=== PATIENT | female | born 1955 | race Caucasian/White ===

== ENCOUNTER 2019-06-30 08:46 | Outpatient (CLI) | payer MEDICARE, SELFPAY ==
--- NOTE | ~2019-06-30 | DEXA_ITS ---
Bone Density Report Name: Rebecca Ann Age: 64 Sex: Female Ethnicity: White Date of : 1955 Indication: postmenopausal; height loss; Referring Provider: Deepthi Betancourt Study: Bone densitometry was performed. Exam Date: June 30, 2019 Accession number: [id number] Bone Density: Region BMD T-score Z-score Classification AP Spine (L1-L4) 0.743 -2.8 -1.0 Osteoporosis Femoral Neck (Left) 0.588 -2.4 -0.8 Osteopenia Total Hip (Left) 0.746 -1.6 -0.4 Osteopenia Total Hip Bilateral Avg 0.706 -2.0 -0.7 Osteopenia Femoral Neck (Right) 0.595 -2.3 -0.8 Osteopenia Total Hip (Right) 0.665 -2.3 -1.0 Osteopenia World Health Organization criteria for BMD impression classify patients as: Normal (T-score at or above -1.0), Osteopenia (T-score between -1.0 and -2.5), or Osteoporosis (T-score at or below -2.5). 10-year Fracture Risk: FRAX not reported because: Some T-score for Spine Total or Hip Total or Femoral Neck at or below -2.5 Clinical Information Provided by Patient: Has used the following medications: Vitamin D Patient maximum height was 64 Menopause Age: 53 No regular weight bearing exercise Onset of menses at age 16 Number of children 0 Impression: The patient has osteoporosis, based on the Total Spine T-score. Discussion: INCREASED RISK OF FRACTURE. BONE DENSITY IS UNDESIRABLY LOW AT ONE OR MORE SKELETAL SITES, CONSISTENT WITH POSTMENOPAUSAL OSTEOPOROSIS. This patient's lowest T-score meets the World Health Organization's (WHO) criteria for osteoporosis at one or more sites (T-score -2.5 or below). In untreated patients, the risk of osteoporotic fracture increases approximately two-fold for each 1.0 SD decrease in T-score. Low bone density is not the only risk factor for fracture; also consider factors such as patient's age, frailty or poor health, risk of falling, risk of injury, previous osteoporotic fracture, family history of osteoporosis, cigarette smoking, low body weight, etc. Not everyone with low bone mineral density has osteoporosis; osteomalacia and other metabolic bone disorders should also be considered. Patients who have osteoporosis should be evaluated for specific diseases and conditions (secondary causes) that may cause or contribute to bone loss. The [place] Association [employer] Endocrinologists (AACE) and National Osteoporosis Foundation (NOF) recommend pharmacologic intervention for all postmenopausal women whose T-score is in this range. The patient should follow a healthful lifestyle (good nutrition with adequate calcium and vitamin D, and appropriate weight-bearing exercise). Follow-Up: Consider a repeat BMD and Vertebral Fracture Assessment (VFA) exam in 2 years or sooner if medically necessary, to reassess this patient's status. Reported by: JANELLE on 06/30/2019 9:25:00 AM.
--- NOTE | ~2019-06-30 | MM_ITS ---
EXAMINATION: MM screening layne BI w ruth HISTORY: Screening mammogram TECHNIQUE: Craniocaudal and mediolateral oblique 3-D tomosynthesis images were obtained and synthetic 2-D images were generated. CAD analysis was submitted and interpreted. COMPARISON: No prior mammogram is available for comparison at this institution. BREAST PARENCHYMAL COMPOSITION: The breasts are heterogeneously dense, which may obscure small masses . FINDINGS: There is no evidence of suspicious mass, calcification, or architectural distortion to sugg est malignancy in either breast. There has been no suspicious interval change. IMPRESSION: 1. No mammographic evidence of malignancy. 2. Recommend routine screening mammography in one year. BI-RADS Category 1: Negative Reviewed, dictated and finalized at location A. LUTION REP
== END 2019-06-30 08:47 | disposition home or self-care (01) ==
PROVIDERS: PCP Family Medicine; Visit Provider Family Medicine
DX: Z12.31 Encounter for screening mammogram for malignant neoplasm of breast (principal); Z78.0 Asymptomatic menopausal state; M81.0 Age-related osteoporosis without current pathological fracture; M85.852 Other specified disorders of bone density and structure, left thigh; M85.851 Other specified disorders of bone density and structure, right thigh
CPT/HCPCS: 77063; 77067; 77080

== ENCOUNTER 2019-11-19 07:22 | Outpatient (CLI) | payer MEDICARE, SELFPAY ==
--- NOTE | 2019-11-19 07:46 | ECHO_ITS ---
Patient Info Name: Rebecca Ann Age: 64 years : 1955 Gender: Female Ht: 63 in Wt: 170 lbs BSA: 1.88 m2 HR: 76 bpm BP: 138 / 81 mmHg Heart Rhythm: Sinus Rhythm Exam Date: 11/19/2019 8:04 AM Exam Location: [facility] Patient Status: Outpatient Admit Date: 11/19/2019 Staff Ordering Physician: Reina Gallegos NP Family Day Carer: Mayra Antony RDCS Attending Provider: Reina Gallegos NP Referring Physician: Rosy ELLSWORTH; Exam Type: CA echo doppler color flow Study Info Indications - SOFT TISSUE DISORDERS - HYPERTENSION Complete two-dimensional, color flow and Doppler transthoracic echocardiogram is performed. Summary 1. Left ventricular chamber dimension is mildly enlarged. 2. Left ventricular systolic function is normal, estimated at 65-70%. 3. There is mildly increased left ventricular wall thickness. 4. The left ventricular diastolic function is grade I diastolic dysfunction. 5. Left atrial chamber dimension is moderately enlarged. 6. There is mild aortic valve regurgitation. 7. There is mild aortic valve sclerosis. 8. There is mild mitral valve regurgitation. 9. There is mild to moderate tricuspid valve regurgitation. 10. Mild pulmonary hypertension, estimated pulmonary arterial systolic pressure is 40 mmHg. 11. There is mild pulmonic regurgitation. Left Ventricle Left ventricular chamber dimension is mildly enlarged. Left ventricular systolic function is normal, estimated at 65-70%. There is mildly increased left ventricular wall thickness. The left ventricular diastolic function is grade I diastolic dysfunction. Right Ventricle Right ventricular chamber dimension is normal. Right ventricular systolic function is normal. Left Atria Left atrial chamber dimension is moderately enlarged. Right Atria Right atrial chamber dimension is normal. Atrial Septum Intact interatrial septum visualized by color flow imaging. Aortic Valve The aortic valve is trileaflet. There is mild aortic valve sclerosis. There is no aortic valve stenosis. There is mild aortic valve regurgitation. Pulmonic Valve The pulmonic valve is normal. There is no pulmonic valve stenosis. There is mild pulmonic regurgitation. Mitral Valve The mitral valve has thickened leaflets. There is no mitral valve stenosis. There is mild mitral valve regurgitation. Tricuspid Valve The tricuspid valve leaflets are normal. There is no significant tricuspid valve stenosis. There is mild to moderate tricuspid valve regurgitation. Mild pulmonary hypertension, estimated pulmonary arterial systolic pressure is 40 mmHg. Pericardium/Pleural The pericardium appears normal. There is no pericardial effusion. Inferior Vena Cava Dilated inferior vena cava with >50% collapse upon inspiration consistent with elevated right atrial pressure, 10 mmHg. Aorta The aortic root size at the sinus of Valsalva is normal. Left Ventricular Outflow Tract Name Value Normal LVOT 2D LVOT Diameter 2.2 cm LVOT Doppler LVOT Peak Gradient 6 mmHg LVOT Mean Gradient 3 m
[2019-11-19 07:54] LABS: Hematocrit 37.1 % (37.0-47.0); Hemoglobin 12.5 g/dL (12.0-15.0); Mean Corpuscular HGB Conc 33.7 g/dl (32-36); Mean Corpuscular Hemoglobin 31.8 pg (26-34); Mean Corpuscular Volume 94.4 fl (80-100); Platelet Count Result 407 k/mm3 (150-375); Red Blood Count 3.93 M/mm3 (4.2-5.4); Red Cell Distribution Width 15.4 % (11.5-14.5); White Blood Count 11.7 K/mm3 (4.5-10.0)
[2019-11-19 07:58] LABS: Alanine Aminotransferase 20 U/L (4-35); Albumin Level 4.5 g/dL (3.5-5.1); Alkaline Phosphatase 70 U/L (38-126); Anion Gap 12.1 mmol/L (7-16); Aspartate Amino Transferase 36 U/L (14-36); Bilirubin,Total 0.6 mg/dL (0.2-1.3); Blood Urea Nitrogen 20 mg/dL (7-17); Calcium 9.3 mg/dL (8.4-10.2); Carbon Dioxide 32 mmol/L (22-30); Chloride 95 mmol/L (98-107); Cholesterol 230 mg/dL (0-200); Estimated Glomerular Filt Rate > 60; Glucose 94 mg/dL (65-105); Potassium 4.1 mmol/L (3.4-5.0); Sodium 135 mmol/L (137-145); Triglycerides 64 mg/dL (<150)
[2019-11-19 08:03] LABS: NT Pro B Type Natriuretic Pept 210 PG/ML (5-100)
[2019-11-19 08:05] LABS: LDL Cholesterol Direct 87 mg/dL
[2019-11-19 08:31] LABS: HDL Direct 123 mg/dL
== END 2019-11-19 07:23 | disposition home or self-care (01) ==
PROVIDERS: PCP Family Medicine; Visit Provider Nurse Practitioner Family
DX: M79.89 Other specified soft tissue disorders (principal); R06.01 Orthopnea; E78.5 Hyperlipidemia, unspecified; I10 Essential (primary) hypertension; I08.3 Combined rheumatic disorders of mitral, aortic and tricuspid valves
CPT/HCPCS: 36415; 80053; 80061; 83880; 85027; 93306

== ENCOUNTER 2020-02-01 08:42 | Outpatient (CLI) | payer MEDICARE, SELFPAY ==
--- NOTE | ~2020-02-01 | NM_ITS ---
EXAMINATION: NM sugey stress w perfusion EXAM DATE: 02/01/2020 12:13 INDICATION: Shortness of breath. TECHNIQUE: Rest images were obtained following intravenous administration of 10.3 mCi Tc99m tetrofosm in (Myoview). The patient was infused intravenously with Lexiscan (regadenoson). Then, 31.5 mCi Tc99m tetrofosmin (Myoview) was administered intravenously, and stress images were obtained. Data was cherelle nstructed into short axis and horizontal and vertical long axis SPECT images. Gated SPECT images were also obtained. There is no prior study for comparison. FINDINGS: There is no reversible or fixed perfusion abnormality to suggest ischemia or infarction. Th ere is normal left ventricular wall motion. End diastolic volume: 62 mL. End-systolic volume: 7 mL. Left ventricular ejection fraction: 89%. IMPRESSION: 1. Normal myocardial perfusion at rest and during stress. 2. Left ventricular ejection fraction measuring 89%. Reviewed, dictated and finalized at location B.
--- NOTE | 2020-02-01 09:22 | EST_ITS ---
Patient Info Name: Rebecca Ann Age: 64 years : 1955 Gender: Female Ht: 63 in Wt: 165 lbs BSA: 1.85 m2 Exam Date: 02/01/2020 10:16 AM Exam Location: [facility] Stress Patient Status: Outpatient Admit Date: 02/01/2020 Staff Ordering Physician: Paige Muñoz NP Attending Provider: Paige Muñoz NP Referring Physician: Jana Castellon MD; Exercise Technologist: Radha Castro RDCS Exam Type: CA stress sugey w NM Study Info Indications R06.02 - Shortness of breath A regadenoson stress test was performed. Summary 1. Normal sinus rhythm. 2. Leftward axis,. 3. No ST segment abnormalities noted following the injection of Lexiscan. 4. Clinically and electrocardiographically negative Lexiscan stress test. 5. Myocardial perfusion imaging study to be dictated by the Radiology Department. Protocol: Lexiscan Stress ECG Details Stage: REST Duration (min): 2 min : 53 sec HR (bpm): 71 SBP (mmHg): 135 DBP (mmHg): 64 Stage: REST Duration (min): 14 min : 48 sec HR (bpm): 70 SBP (mmHg): 135 DBP (mmHg): 64 Stage: STAGE 1 Duration (min): 0 min : 59 sec HR (bpm): 84 SBP (mmHg): 136 DBP (mmHg): 81 Stage: RECOVERY Duration (min): 1 min : 0 sec HR (bpm): 87 SBP (mmHg): 119 DBP (mmHg): 81 Stage: RECOVERY Duration (min): 2 min : 0 sec HR (bpm): 84 SBP (mmHg): 119 DBP (mmHg): 81 Stage: RECOVERY Duration (min): 3 min : 0 sec HR (bpm): 82 SBP (mmHg): 121 DBP (mmHg): 85 Stage: RECOVERY Duration (min): 4 min : 0 sec HR (bpm): 84 SBP (mmHg): 142 DBP (mmHg): 98 Stage: RECOVERY Duration (min): 4 min : 7 sec HR (bpm): 82 SBP (mmHg): 142 DBP (mmHg): 98 Rest HR: 70 bpm Peak HR: 89 bpm Rest Sys BP: 135 mmHg Peak Sys BP: 142 mmHg Max Pred HR: 155 bpm % Max Pred HR: 57 % Target HR: 132 bpm Max RPP: 12,638 bpm*mmHg BP Response: Normal blood pressure response Termination Reason: Completed protocol Cardiac Symptoms: None Total Time: 1 min : 0 sec Rest Nicolas BP: 64 mmHg Peak Nicolas BP: 98 mmHg Total Dose: 0.4 mg Resting ECG Normal sinus rhythm. Leftward axis,. Stress ECG No ST segment abnormalities noted following the injection of Lexiscan. Report Signatures
== END 2020-02-01 08:43 | disposition home or self-care (01) ==
PROVIDERS: PCP Nurse Practitioner; Referring Provider Internal Medicine Cardiovascular Disease; Visit Provider Nurse Practitioner
DX: R06.02 Shortness of breath (principal)
CPT/HCPCS: 78452; 93017; A9502; J2785

== ENCOUNTER 2020-02-08 11:51 | Outpatient (CLI) | payer MEDICARE, SELFPAY ==
--- NOTE | ~2020-02-08 | XR_ITS ---
EXAMINATION: XR chest 2V DATE: 02/08/2020 12:32 INDICATION: Shortness of breath. TECHNIQUE: Frontal and lateral views of the chest were obtained. COMPARISON: None. FINDINGS: There is eventration of anterior right hemidiaphragm. No pleural effusion or pneumothorax. The heart size is normal. There are surgical clips in the abdomen. IMPRESSION: 1. No acute cardiopulmonary disease. Reviewed, dictated and finalized at location A.
[2020-02-08 13:32] LABS: Anion Gap 7 mmol/L (8-16); Blood Urea Nitrogen 38 mg/dL (7-17); Calcium 9.3 mg/dL (8.4-10.2); Carbon Dioxide 36 mmol/L (22-30); Chloride 93 mmol/L (98-107); Estimated Glomerular Filt Rate 41; Glucose 99 mg/dL (65-105); Potassium 4.3 mmol/L (3.4-5.0); Sodium 136 mmol/L (137-145)
== END 2020-02-08 11:52 | disposition home or self-care (01) ==
PROVIDERS: PCP Nurse Practitioner; Visit Provider Internal Medicine Cardiovascular Disease
DX: R09.02 Hypoxemia (principal)
CPT/HCPCS: 36415; 71046; 80048

== ENCOUNTER 2020-03-17 18:49 | Observation (INO) | payer MEDICARE, SELFPAY ==
[2020-03-17] VITALS (13 sets, daily range): BP systolic 110–128; BP diastolic 73–77; PULSE 78–95; RESP 16–26; TEMP 36.6; O2SAT 92–100
--- NOTE | ~2020-03-17 | US_ITS ---
EXAMINATION: US renal BI DATE: 03/18/2020 14:53 INDICATION: Left kidney mass. TECHNIQUE: Multiple ultrasound grayscale images of the kidneys were obtained. COMPARISON: Chest CT 03/17/2020 FINDINGS: The right kidney measures 11.9 x 5.2 x 5.1 cm. The left kidney measures 10.3 x 5.6 x 6.9 cm. The kidn eys demonstrate normal parenchymal echogenicity. There is a 1.7 cm cyst of left kidney. There is no h ydronephrosis. The bladder is normal. IMPRESSION: 1. Benign cyst of left kidney. Reviewed, dictated and finalized at location A. PMENT INSTALLATION PROFESSIONAL
--- NOTE | ~2020-03-17 | XR_ITS ---
EXAMINATION: XR chest 1V portable DATE: 03/17/2020 19:33 INDICATION: Dyspnea TECHNIQUE: frontal view of the chest was obtained. COMPARISON: Chest radiograph dated 02/08/2020 FINDINGS: Eventration along the anterior right hemidiaphragm. Minimal linear atelectasis at the bilateral lung bases. No pulmonary edema, pleural effusion or pneumothorax. The cardiomediastinal silhouette is with in normal limits for AP technique. . Surgical clips in the epigastric region of the left upper quadra nt. Mild lumbar levoscoliosis with mild spondylosis. IMPRESSION: 1. Mild bibasilar atelectasis. Reviewed, dictated and finalized at location H. CE PILOT
--- NOTE | ~2020-03-17 | CT_ITS ---
EXAMINATION: CTA chest PE protocol DATE: 03/17/2020 23:37 INDICATION: Chest pain TECHNIQUE: Computed tomography (CT) pulmonary angiogram of the chest was performed with 100 mL Omnipa que-350 intravenous contrast. Additional 3D reconstructions utilizing coronal maximum intensity proje ction (MIP) were performed. Automated exposure control and iterative reconstruction technique were em ployed. The dose-length product was 334.29 mGy-cm. COMPARISON: None the orbits and FINDINGS: Excellent contrast opacification of the pulmonary arteries. There is mild streak artifact from dense contrast in the superior vena cava and right atrium. Moderate respiratory motion artifact throughout the lungs which does not significantly limit evaluation in the larger pulmonary arteries which demons trate multiple pulmonary emboli. This includes pulmonary emboli extending between the right upper and right lower lobar pulmonary arteries and into several segmental and subsegmental pulmonary arteries in both lobes. There are also pulmonary emboli in several segmental and subsegmental pulmonary arteri es in the left upper and lower lobes as well as in both the superior and inferior segmental pulmonary arteries of the lingula. There are small peripheral opacities at the lingula consistent with pulmona ry infarcts. No pulmonary edema or pleural effusion. Cardiomegaly with right heart predominance and e nlargement. There is enlargement of the central pulmonary arteries consistent with pulmonary arterial hypertension likely secondary to the large pulmonary arterial clot burden. There is however no leftw chad bowing of the ventricular septum to suggest right heart strain. No pericardial effusion. Thoracic aorta is normal in caliber with no dissection. No pathologically enlarged thoracic lymphadenopathy. Indeterminate 1.8 cm exophytic left renal lesion with relatively low but slightly greater than fluid attenuation which may be related to the presence of intravenous contrast and streak artifact from car diac monitoring leads which is statistically most likely to represent a renal cyst. Status post splen ectomy with surgical clips in the left upper quadrant. Mild thoracic spondylosis. IMPRESSION: 1. Extensive bilateral pulmonary emboli with small peripheral infarcts at the lingula. 2. Enlargement of the central pulmonary arteries likely secondary pulmonary arterial hypertension. 3. Cardiomegaly with right side predominant enlargement which may also be secondary to the pulmonary emboli although there is no leftward bowing of the ventricular septum to more specifically suggest ri ght heart strain. 4. Indeterminate 1.8 cm left renal lesion statistically most likely to represent a renal cyst. Could consider follow-up renal ultrasound for further evaluation. Reviewed, dictated and finalized at location H. E TURNER AND FORMER IMPRESSION: 1. Extensive bilateral pulmonary emboli with small peripheral infarcts at the l ingula. 2. Enlargement of the central pulmonary arteries likely secondary pulmonary art erial hypertension. 3. Cardiomegaly with right side predominant enlargement which may also be secon amanda to the pulmonary emboli although there is no leftward bowing of the ventri cular septum to more specifically suggest right heart strain. 4. Indeterminate 1.8 cm left renal lesion statistically most likely to represen t a renal cyst. Could consider follow-up renal ultrasound for further evaluatio n.
--- NOTE | ~2020-03-17 | US_ITS ---
EXAMINATION: US venous doppler LE EXAM DATE: 03/18/2020 14:52 INDICATION: Rule out DVT. bilat pulmonary emboli. TECHNIQUE: Multiple grayscale, color flow and Doppler images of the lower extremity deep venous syste ms bilaterally were obtained and reviewed. There is no prior study for comparison. FINDINGS: RIGHT SIDE Common femoral: -------- Normal. Profunda femoral: -------Thrombosed. Femoral: Thrombosed. Popliteal: Thrombosed. Posterior tibial: ---------Thrombosed. Peroneal: Normal. Gastrocnemius: Thrombosed. Soleus: Thrombosed. Greater saphenous: ----- Normal. Lesser saphenous: ------ Not visualized. LEFT SIDE Common femoral: -------- Normal. Profunda femoral: ------- Normal. Femoral: Normal. Popliteal: Thrombosed distally. Posterior tibial: ---------Thrombosed. Peroneal: Normal. Gastrocnemius: Not visualized. Soleus: Not visualized. Greater saphenous: ----- Normal. Lesser saphenous: ------ Not visualized. IMPRESSION: 1. Extensive right lower extremity DVT. 2. Smaller left popliteal, posterior tibial DVT. Reviewed, dictated and finalized at location A. CULTURAL APPRAISER
--- NOTE | 2020-03-17 19:20 | PC.NURSE ---
patient resting on stretcher. patient unclear on her symptoms that lead to calling EMS. states her family member told her that she had Covid based on her symptoms and to call EMS. alert. oriented. no distress. on cardiac rn. SL inserted by EMS. updated on treatment plan at this time. call light in reach. blanket given. patient already asking for dinner tray.
--- NOTE | 2020-03-17 19:43 | PC.NURSE ---
patient's labs rejected. redrawn now by gameroom technician. no change in overall condition. resting on stretcher. CXR done and resulted. call light in reach.
[2020-03-17 19:48] LABS: Basophils Absolute Auto 0.1 K/mm3 (0.0-0.1); Basophils Percent Auto 0.4 % (0.2-1.2); Eosinophils Percent Auto 0.1 % (0-4.4); Hematocrit 38.7 % (37.0-47.0); Hemoglobin 13.1 g/dL (12.0-15.0); Immature Granulocyte Absolute 0.18 K/mm3 (0.00-0.031); Lymphocytes Absolute Auto 2.09 K/mm3 (0.9-3.2); Lymphocytes Percent Auto 11.2 % (18.3-44.2); Mean Corpuscular HGB Conc 33.9 g/dl (32-36); Mean Corpuscular Hemoglobin 32.9 pg (26-34); Mean Corpuscular Volume 97.2 fl (80-100); Mean Platelet Volume 10.7 fl (7.4-10.4); Monocytes Absolute Auto 2.9 K/mm3 (0.1-0.6); Monocytes Percent Auto 15.5 % (2.6-8.5); Neutrophils Absolute Auto 13.4 K/mm3 (1.3-6.7); Neutrophils Percent Auto 71.8 % (45.5-73.1); Platelet Count Result 301 k/mm3 (150-375); Red Blood Count 3.98 M/mm3 (4.2-5.4); Red Cell Distribution Width 13.7 % (11.5-14.5); White Blood Count 18.7 K/mm3 (4.5-10.0)
[2020-03-17 19:59] LABS: Alanine Aminotransferase 10 U/L (4-35); Albumin Level 4.2 g/dL (3.5-5.1); Alkaline Phosphatase 69 U/L (38-126); Anion Gap 11 mmol/L (8-16); Aspartate Amino Transferase 21 U/L (14-36); Bilirubin,Total 0.9 mg/dL (0.2-1.3); Blood Urea Nitrogen 55 mg/dL (7-17); Calcium 9.3 mg/dL (8.4-10.2); Carbon Dioxide 33 mmol/L (22-30); Chloride 92 mmol/L (98-107); Estimated CRCL calculation 25 ml/min; Estimated Glomerular Filt Rate 28; Glucose 130 mg/dL (65-105); Potassium 3.5 mmol/L (3.4-5.0); Sodium 136 mmol/L (137-145)
[2020-03-17 20:04] LABS: Prothrombin Time 13.9 Seconds (11.1-14.7)
[2020-03-17 20:05] LABS: Partial Thromboplastin Time 33.1 SECONDS (22.3-36.8)
[2020-03-17 20:11] LABS: NT Pro B Type Natriuretic Pept 320 PG/ML (5-100); Troponin I 0.015 ng/mL (0.000-0.034)
[2020-03-17 20:32] LABS: D Dimer 3.21 ug/mL (<0.48)
[2020-03-17] MEDS: SODIUM CHLORIDE 0.9% IV 1,000 ML 999 ML IV CONT (21:02)
--- NOTE | 2020-03-17 22:01 | PC.NURSE ---
resting on stretcher. IVF done. repeat BMP being drawn. provider in room. patient updated on current treatment plan. needs CT of chest to r/o PE if labs better. patient verbalizes understanding. denies needs. wants us to call her family member with an update.
[2020-03-17 22:33] LABS: Anion Gap 12 mmol/L (8-16); Blood Urea Nitrogen 51 mg/dL (7-17); Calcium 8.5 mg/dL (8.4-10.2); Carbon Dioxide 26 mmol/L (22-30); Chloride 95 mmol/L (98-107); Estimated CRCL calculation 30 ml/min; Estimated Glomerular Filt Rate 35; Glucose 125 mg/dL (65-105); Potassium 3.2 mmol/L (3.4-5.0); Sodium 133 mmol/L (137-145)
[2020-03-18] VITALS (12 sets, daily range): BP systolic 108–128; BP diastolic 64–73; PULSE 69–95; RESP 16–22; TEMP 36.2–37.1; O2SAT 97–100; BMI 26.6
--- NOTE | 2020-03-18 | ECHO_ITS ---
Patient Info Name: Rebecca Ann Age: 65 years : 1955 Gender: Female Ht: 63 in Wt: 150 lbs BSA: 1.76 m2 HR: 75 bpm BP: 108 / 68 mmHg Heart Rhythm: Sinus Rhythm Technical Quality: Good Exam Date: 03/18/2020 9:20 AM Exam Location: [facility] Card Pulmonary Patient Status: Inpatient Admit Date: 03/18/2020 Staff Ordering Physician: Kenzie eLma PA-C Jigmaker: Henry Mendoza RDCS Attending Provider: Kenzie Lema PA-C Referring Physician: Torey ROCK; Exam Type: CA echo doppler color flow Study Info Indications I26.09 - Other pulmonary embolism with acute cor pulmonale Complete two-dimensional, color flow and Doppler transthoracic echocardiogram is performed. History/Risk Factors Pulmonary embolism; HTN, cardiomegaly, right heart strain on CT. Summary 1. Complete two-dimensional, color flow and Doppler transthoracic echocardiogram is performed. 2. Left ventricular chamber dimension is normal. 3. Left ventricular systolic function is hyperdynamic, estimated at >70%. 4. Right ventricular chamber dimension is mildly enlarged. 5. No significant valvular abnormalities. Left Ventricle Left ventricular chamber dimension is normal. Left ventricular systolic function is hyperdynamic, estimated at >70%. The left ventricular diastolic function is grade I diastolic dysfunction. Right Ventricle Right ventricular chamber dimension is mildly enlarged. Left Atria Left atrial chamber dimension is normal. Right Atria Right atrial chamber dimension is normal. Aortic Valve The aortic valve is trileaflet. There is mild aortic valve sclerosis. Pulmonic Valve The pulmonic valve is not well visualized. Mitral Valve The mitral valve has normal leaflets. Tricuspid Valve The tricuspid valve leaflets are normal. Pericardium/Pleural The pericardium appears normal. Aorta The aortic root size at the sinus of Valsalva is normal. Left Ventricular Outflow Tract Name Value Normal LVOT 2D LVOT Diameter 2.1 cm LVOT Doppler LVOT Peak Gradient 4 mmHg LVOT Mean Gradient 2 mmHg LVOT VTI 15 cm LVOT VTI/AV VTI Ratio 0.7 LVOT Stroke Volume 53 ml LVOT CO 4.0 l/min LVOT CI 2.3 l/min/m2 Mitral Valve Name Value Normal MV Doppler MV Decel [place] 142 cm/s2 MV PHT 94 ms MV Area (PHT) 2.3 cm2 4.0-5.0 MV Diastolic Function MV E Peak Velocity 46 cm/s MV A Peak Velocity 66 cm/s MV E/A
--- NOTE | 2020-03-18 00:22 | ED.WEAKNESS ---
HPI - Weakness General Chief complaint: Weakness Stated complaint: CP,LOSS OF APPETITE Time Seen by Provider: 03/17/20 19:02 History of Present Illness HPI Narrative: Patient is a 65-year-old female who presents the emergency department with chief complaint of generalized malaise. Patient reports also she has had discomfort and describes a sharp uncomfortable feeling in the left side of her chest that hurts whenever she takes a deep breath. The patient states that it is not improved by anything and is worsened whenever she has inspiratory effort. Patient states that she is just felt unwell for the last several days denies fever denies chills denies nausea or vomiting. Patient reports no prior history of clotting disorder Related Data Home Medications Medication Instructions Recorded Confirmed ergocalciferol (vitamin D2) 1,250 1,250 mcg PO WEEKLY 05/07/19 11/26/19 mcg (50,000 unit) capsule aspirin 81 mg tablet,delayed 81 mg PO DAILY 11/26/19 11/26/19 release Allergies Allergy/AdvReac Type Severity Reaction Status Date / Time prochlorperazine Allergy Unknown Verified 03/17/20 19:12 Review of Systems Review of Systems: Narrative: CONSTITUTIONAL: Denies fever, chills, or sweats. EYES: Denies visual changes, redness, or discharge. ENT: Denies rhinorrhea, congestion, sore throat, or otalgia. CARDIOVASCULAR: Denies chest pain, palpitations, or edema. RESPIRATORY: Denies cough or dyspnea. GASTROINTESTINAL: Denies abdominal pain, nausea, vomiting, or diarrhea. GENITOURINARY: Denies dysuria or hematuria. SKIN: Denies rash or itching. MUSCULOSKELETAL: Denies back pain, joint pain, or myalgia. NEUROLOGIC: Denies headache, numbness, or weakness. PSYCHIATRIC: Denies anxiety or depression. All systems reviewed & are unremarkable except as noted in HPI and below PMFSH Past Medical History Medical History (Updated 03/18/20 @ 00:48 by Leland Rao MD) Arthralgia of both hands Benign essential hypertension Counseling regarding advanced care planning and goals of care Encounter for counseling regarding immunization Negative depression screening Family History Family History Mother Acute myocardial infarction, Onset Age: 63 Father Acute myocardial infarction, Onset Age: 65 Other Family history of throat cancer Social History Social History Smoking status: Never smoker Second hand tobacco smoke exposure: Yes Alcohol intake: current Exam Narrative: Exam Narrative: GENERAL: Well-appearing, well-nourished, and in no acute distress. HEAD: Normocephalic, atraumatic. EYES: PERRLA and EOMI. ENT: Nares clear, no rhinorrhea or epistaxis. Mucous membranes moist. NECK: Supple. CHEST: Clear to auscultation. No respiratory distress. HEART: Regular rate and rhythm. No murmur heard. Normal peripheral pulses. ABDOMEN: Soft, nontender, nondistended, normal active bowel sounds. EXTREMITIES: Normal range of motion. No edema. SKIN: Warm, dry, no rash. NEURO: No focal deficits. Alert and oriented x3. PSYCH: Normal mood and affect. Course Course Emergency Course: EKG showed no ST elevation or ST depression. Patient's laboratory studies showed a significantly elevated D-dimer and also she was found to have a creatinine that was 1.8 the patient has showed evidence of a acute kidney injury patient was hydrated with a liter of normal saline and the repeat creatinine was 1.5. CT angiography of the chest was obtained this showed evidence of acute bilateral pulmonary emboli. Vital Signs Vital signs: Vital Signs Temperature 36.6 C 03/17/20 19:07 Temperature 36.6 C 03/17/20 19:07 Pulse Rate 80 03/18/20 00:16 Respiratory Rate 18 03/18/20 00:16 Blood Pressure 112/73 03/18/20 00:16 Pulse Oximetry 97 03/18/20 00:16 MDM - Weakness Lab Data Resul
[2020-03-18] MEDS: HEPARIN SOD/D5W 100 UNITS/ML 25,000 UNITS/250 ML BAG 12.26 UNITS IV CONT (00:47)
[2020-03-18 00:48] LABS: Add Urine Microscopic? YES; Appearance Urine Clear (Clear); Bilirubin Urine Negative (Negative); Blood Urine 1+ (Negative); Color Urine Yellow (Yellow); Glucose Urine UA Negative (Negative); Ketones Urine Trace mg/dL (Negative); Leukocyte Esterase Ur Trace LEU/UL (Negative); Mucus Urine Rare /lpf; Nitrate Urine Negative (Negative); Protein Urine Negative (Negative); Specific Grav Ur 1.051 (1.001-1.035); Squamous Epithelial Cell Urine Few /hpf (Few); Urobilinogen Urine Negative mg/dL (<2.0)
--- NOTE | 2020-03-18 04:36 | PM.IMHP ---
H&P: HPI History of Present Illness Date/Time: 03/18/20 04:36 Chief complaint: Pulmonary Embolism Narrative: This is a pleasant 65-year-old female with known history of hypertension who presented to the [facility] with complaint of left-sided lower chest discomfort which she described as pleuritic in nature. Patient complained that her chest discomfort was present whenever she took a deep breath and felt like she had a hard time taking a deep breath. She denies any fever, chills, cough, palpitations, abdominal pain, dysuria, hematuria, diarrhea, rectal bleeding, lower extremity swelling, or lower extremity pain. Patient denies any previous history of blood clotting and is not known to be on any anticoagulants. She denies any known history of active cancer, has not had any recent surgeries, and denies any long distance recent travel. She also denies any supplemental hormone therapy. CTA chest obtained in the emergency department this evening demonstrated extensive bilateral pulmonary emboli with small peripheral infarcts at the lingula and enlargement of the central pulmonary arteries likely secondary pulmonary arterial hypertension. The patient was anticoagulated in the emergency room with IV heparin and we were asked to admit the patient to the hospital for further care. The patient has not required any supplemental oxygen. Currently she is only complaining of mild left lower abdominal discomfort. No other complaints. Review of Systems Review of Systems: All systems reviewed & are unremarkable except as noted in HPI and below PMFSH Past Medical History Medical History Arthralgia of both hands Benign essential hypertension Counseling regarding advanced care planning and goals of care Encounter for counseling regarding immunization Negative depression screening Family History Family History Mother Acute myocardial infarction, Onset Age: 63 Father Acute myocardial infarction, Onset Age: 65 Other Family history of throat cancer Social History Social History Smoking status: Never smoker Second hand tobacco smoke exposure: Yes Alcohol intake: current Comments past surgical history is reviewed and noncontributory. Meds Home Medications and Allergies Home Medications Medication Instructions Recorded Confirmed Type ergocalciferol (vitamin D2) 1,250 1,250 mcg PO WEEKLY 05/07/19 11/26/19 History mcg (50,000 unit) capsule losartan 50 mg tablet 50 mg PO BID #180 tablet 11/05/19 11/26/19 Rx aspirin 81 mg tablet,delayed 81 mg PO DAILY 11/26/19 11/26/19 History release metoprolol tartrate 25 mg tablet 25 mg PO DAILY #60 tablet 11/26/19 11/26/19 Rx potassium chloride 10 mEq See Rx Instructions .ROUTE 02/24/20 Rx tablet,extended release(part/cryst) .COMPLEX #90 tablet furosemide [Lasix] 40 mg PO QAM 03/18/20 03/18/20 History hydrochlorothiazide 12.5 mg PO DAILY 03/18/20 03/18/20 History Allergies Allergy/AdvReac Type Severity Reaction Status Date / Time prochlorperazine Allergy Unknown Verified 03/17/20 19:12 Vital Signs Vital Signs - 24 hr 03/17/20 19:07 03/17/20 19:11 03/17/20 20:16 Temperature 36.6 C Pulse Rate 78 95 Respiratory Rate 19 Blood Pressure 128/77 Pulse Oximetry 96 03/17/20 20:23 03/17/20 20:38 03/17/20 21:02 Temperature Pulse Rate 95 95 87 Respiratory Rate 22 H 21 H 16 Blood Pressure Pulse Oximetry 94 95 99 03/17/20 21:15 03/17/20 21:16 03/17/20 21:30 Temperature Pulse Rate 84 83 83 Respiratory Rate 18 18 19 Blood Pressure 123/77 Pulse Oximetry 100 99 99 03/17/20 21:31 03/17/20 21:32 03/17/20 22:16 Temperature Pulse Rate 84 81 79 Respiratory Rate 20 20 17 Blood Pressure 110/73 Pulse Oximetry 97 97 92 03/17/20 22:31 03/18/20 00:16 1
--- NOTE | 2020-03-18 04:50 | ADMGEN ---
This patient, Rebecca Ann, was admitted to Medical Room [facility]- at 0255. Patient/family oriented to hospital policies and general routines including ID bracelet, bed and alarms, visiting hours, pain management, procedures, bathroom and other care routines, personal items, smoking policy, room service/diet, and visiting hours. Information on how to activate the Rapid Response Team has been discussed. Patient/Family are encouraged to report perceived risks to care and to ask questions if they do not understand what they are told or what they should do.
[2020-03-18] MEDS: SODIUM CHLORIDE 0.9% IV 1,000 ML 100 ML IV CONT ×2 (05:59→21:44)
[2020-03-18 06:19] LABS: Basophils Percent Auto 0.2 % (0.2-1.2); Eosinophils Percent Auto 0.1 % (0-4.4); Hemoglobin 11.2 g/dL (12.0-15.0); Immature Granulocyte Absolute 0.15 K/mm3 (0.00-0.031); Immature Granulocyte Percent A 0.9 % (0-0.5); Lymphocytes Absolute Auto 2.26 K/mm3 (0.9-3.2); Lymphocytes Percent Auto 13.4 % (18.3-44.2); Mean Corpuscular HGB Conc 33.9 g/dl (32-36); Mean Corpuscular Hemoglobin 32.5 pg (26-34); Mean Corpuscular Volume 95.7 fl (80-100); Mean Platelet Volume 11.9 fl (7.4-10.4); Monocytes Percent Auto 17.5 % (2.6-8.5); Neutrophils Absolute Auto 11.5 K/mm3 (1.3-6.7); Neutrophils Percent Auto 67.9 % (45.5-73.1); Nucleated Red Blood Cells Perc 0.1 % (0.0-0.2); Platelet Count Result 281 k/mm3 (150-375); Red Blood Count 3.45 M/mm3 (4.2-5.4); Red Cell Distribution Width 13.8 % (11.5-14.5); White Blood Count 16.9 K/mm3 (4.5-10.0)
[2020-03-18 06:23] LABS: Anion Gap 13 mmol/L (8-16); Blood Urea Nitrogen 54 mg/dL (7-17); Calcium 8.5 mg/dL (8.4-10.2); Carbon Dioxide 27 mmol/L (22-30); Chloride 95 mmol/L (98-107); Estimated CRCL calculation 33 ml/min; Estimated Glomerular Filt Rate 38; Glucose 129 mg/dL (65-105); Magnesium 2.2 mg/dL (1.6-2.3); Potassium 2.9 mmol/L (3.4-5.0); Sodium 135 mmol/L (137-145)
[2020-03-18 06:28] LABS: Troponin I 0.018 ng/mL (0.000-0.034)
[2020-03-18 07:30] LABS: Partial Thromboplastin Time 64.9 SECONDS (22.3-36.8)
[2020-03-18] MEDS: HEPARIN SODIUM 5,000 UNITS/ML VIAL 2500 UNITS IV PUSH ×2 (07:39→16:18)
[2020-03-18] MEDS: POTASSIUM CHLORIDE 20 MEQ TABLET 40 MEQ PO (08:06)
[2020-03-18] MEDS: HEPARIN SOD/D5W 100 UNITS/ML 25,000 UNITS/250 ML BAG 13 UNITS IV CONT (08:29)
[2020-03-18] MEDS: METOPROLOL TARTRATE 25 MG TABLET PO (09:54)
[2020-03-18] MEDS: ASPIRIN 81 MG ENTERIC TABLET PO (09:54)
--- NOTE | 2020-03-18 10:23 | PM.IMPN ---
Progress Note: A&P Assessment and Plan (1) Pulmonary emboli: Qualifiers: Pulmonary embolism type: multiple subsegmental (without acute cor pulmonale) Qualified Code(s): I26.94 - Multiple subsegmental pulmonary emboli without acute cor pulmonale Code(s): I26.99 - Other pulmonary embolism without acute cor pulmonale Status: Acute Assessment and Plan: Pulmonary emboli are likely subacute given that she already has evidence on her CTA of pulmonary hypertension and right-sided cardiomegaly. She reports shortness of breath for 1 month which worsened in the past 3-4 days. She has no prior hx of VTE. Continue heparin gtt. Echocardiogram and venous doppler US are ordered and pending. She is hemodynamically stable and she is not hypoxic. Care coordination consult has been placed to check cost of DOACs. Continue analgesics as needed. Continue heparin gtt. Monitor H&H closely. (2) Leukocytosis: Qualifiers: Leukocytosis type: unspecified Qualified Code(s): D72.829 - Elevated white blood cell count, unspecified Code(s): D72.829 - Elevated white blood cell count, unspecified Status: Acute Assessment and Plan: Likely reactive secondary to pulmonary embolism. She has no other sx to suggest infection. Continue to monitor. (3) Acute on chronic renal failure: Qualifiers: Acute renal failure type: unspecified Chronic kidney disease stage: stage 3 (moderate) Chronic kidney disease stage 3 subtype: unspecified whether 3a or 3b Qualified Code(s): N17.9 - Acute kidney failure, unspecified; N18.30 - Chronic kidney disease, stage 3 unspecified Code(s): N17.9 - Acute kidney failure, unspecified; N18.9 - Chronic kidney disease, unspecified Status: Acute Assessment and Plan: Cr at admission to the emergency department was 1.8 and BUN 55. I suspect pre-renal etiology as she recently started furosemide 40mg PO QD. She has received gentle IV fluids. Cr has improved to 1.4 and BUN 54. Baseline appears to be 0.6-1.3. Avoid nephrotoxins and renally dose medications. Hold losartan-HCTZ for now. Lasix is also on hold. Continue to monitor closely. (4) Renal mass: Code(s): N28.89 - Other specified disorders of kidney and ureter Status: Acute Assessment and Plan: The patient was incidentally found to have a 1.8 cm left renal mass on chest CTA. Renal US was ordered for further characterization and is pending. (5) Benign essential hypertension: Code(s): I10 - Essential (primary) hypertension Status: Chronic Assessment and Plan: Blood pressures are well-controlled. Continue metoprolol. Losartan-hydrochlorothiazide is held for now given MIRIAM. Continue metoprolol. Continue to monitor. (6) Hypokalemia: Code(s): E87.6 - Hypokalemia Status: Acute Assessment and Plan: Likely secondary to diuretic use. She does take potassium supplement daily. Will supplement and monitor closely. Subjective Date/time seen: 03/18/20 10:23 Mrs. Ann is a 65 y.o. female with PMH significant for hypertension who is seen in follow-up for pulmonary embolism. She is feeling better today. She denies dyspnea. She did have left-sided pleuritic pain which prompted her to proceed to the ED which is much better today. She denies cough. She is not having any nausea, vomiting, or abdominal pain. She reports swelling in the feet intermittently for several months but denies significant calf pain or leg swelling today. She is not dizzy or lightheaded. She has no voiding concerns. Bowels are regular and she denies melena and hematochezia. Review of Systems Review of Systems: All systems reviewed & are unremarkable except as noted in HPI and below Exam Narrative: Exam Narrative: General: Very pleasant, well-developed, and well-nourished 65 y.o. female who is resting comfortably in bed in no acute distress. HEENT: Normocephal
--- NOTE | 2020-03-18 13:20 | PC.NURSE ---
Patient to ultrasound per stretcher.
--- NOTE | 2020-03-18 14:23 | PCOTNOTE ---
OT evaluation attempted. Patient down for testing. Will attempt OT evaluation at later time
--- NOTE | 2020-03-18 15:00 | PC.NURSE ---
Patient return from ultrasound.
--- NOTE | 2020-03-18 15:58 | PC.NURSE ---
PTT drawn late d/t patient being off the floor for testing. PTT drawn as soon as patient returned.
[2020-03-18 16:11] LABS: Partial Thromboplastin Time 70.2 SECONDS (22.3-36.8)
[2020-03-18] MEDS: HEPARIN SOD/D5W 100 UNITS/ML 25,000 UNITS/250 ML BAG 14 UNITS IV CONT (22:27)
[2020-03-18 22:47] LABS: Partial Thromboplastin Time 125.9 SECONDS (22.3-36.8)
[2020-03-19] VITALS (9 sets, daily range): BP systolic 121–136; BP diastolic 67–75; PULSE 69–77; RESP 18–20; TEMP 37–37.2; O2SAT 96–100
[2020-03-19 05:56] LABS: Basophils Absolute Auto 0.1 K/mm3 (0.0-0.1); Basophils Percent Auto 0.4 % (0.2-1.2); Eosinophils Absolute Auto 0.3 K/mm3 (0-0.3); Eosinophils Percent Auto 2.4 % (0-4.4); Hematocrit 31.7 % (37.0-47.0); Hemoglobin 10.6 g/dL (12.0-15.0); Immature Granulocyte Absolute 0.14 K/mm3 (0.00-0.031); Lymphocytes Percent Auto 18.6 % (18.3-44.2); Mean Corpuscular HGB Conc 33.4 g/dl (32-36); Mean Corpuscular Hemoglobin 32.7 pg (26-34); Mean Corpuscular Volume 97.8 fl (80-100); Mean Platelet Volume 11.5 fl (7.4-10.4); Monocytes Absolute Auto 2.7 K/mm3 (0.1-0.6); Monocytes Percent Auto 19.3 % (2.6-8.5); Neutrophils Absolute Auto 8.1 K/mm3 (1.3-6.7); Neutrophils Percent Auto 58.3 % (45.5-73.1); Platelet Count Result 332 k/mm3 (150-375); Red Blood Count 3.24 M/mm3 (4.2-5.4); Red Cell Distribution Width 13.5 % (11.5-14.5)
[2020-03-19 06:06] LABS: Partial Thromboplastin Time 62.9 SECONDS (22.3-36.8)
[2020-03-19] MEDS: HEPARIN SODIUM 5,000 UNITS/ML VIAL 2500 UNITS IV PUSH ×2 (06:11→12:51)
[2020-03-19] MEDS: SODIUM CHLORIDE 0.9% IV 1,000 ML 100 ML IV CONT (06:14)
[2020-03-19 06:46] LABS: Anion Gap 7 mmol/L (8-16); Blood Urea Nitrogen 37 mg/dL (7-17); Calcium 8.3 mg/dL (8.4-10.2); Carbon Dioxide 28 mmol/L (22-30); Chloride 101 mmol/L (98-107); Estimated CRCL calculation 50 ml/min; Estimated Glomerular Filt Rate > 60; Glucose 105 mg/dL (65-105); Magnesium 2.2 mg/dL (1.6-2.3); Potassium 3.5 mmol/L (3.4-5.0); Sodium 136 mmol/L (137-145)
[2020-03-19] MEDS: ASPIRIN 81 MG ENTERIC TABLET PO (08:04)
[2020-03-19] MEDS: METOPROLOL TARTRATE 25 MG TABLET PO (08:04)
--- NOTE | 2020-03-19 09:46 | PM.IMPN ---
Progress Note: A&P Assessment and Plan (1) Pulmonary emboli: Qualifiers: Pulmonary embolism type: multiple subsegmental (without acute cor pulmonale) Qualified Code(s): I26.94 - Multiple subsegmental pulmonary emboli without acute cor pulmonale Code(s): I26.99 - Other pulmonary embolism without acute cor pulmonale Status: Acute Assessment and Plan: Pulmonary emboli are likely subacute given that she already has evidence on her CTA of pulmonary hypertension and right-sided cardiomegaly. She reports shortness of breath for 1 month which worsened in the past 3-4 days. She has no prior hx of VTE. Continue heparin gtt. Echocardiogram shows normal LV systolic chamber dimension, hyperdynamic LV systolic function >70%, mild right ventricular chamber enlargement, grade 1 diastolic dysfunction, and no significant valvular abnormalities, pulmonary artery pressure normal at 24mmHg. Venous doppler US shows extensive RLE DVT extending to profunda femoral vein and LLE DVT in the popliteal and posterior tibial veins. She is hemodynamically stable and she is not hypoxic. Telemetry demonstrates sinus rhythm and infrequent PVCs. Eliquis will be covered for the patient at discharge. Continue analgesics as needed. Continue heparin gtt. Monitor H&H closely. (2) Anemia: Code(s): D64.9 - Anemia, unspecified Status: Acute Assessment and Plan: Hb was normal at admission (13.1) and dropped to 10.6 today. She has no evidence of acute bleeding and this may be dilutional as she was given IV fluids. Normocytic. Monitor closely for bleeding. Check occult stool testing. Check iron studies, B12, folate. Monitor CBC daily. Transfuse as needed to maintain Hb >7. (3) Leukocytosis: Qualifiers: Leukocytosis type: unspecified Qualified Code(s): D72.829 - Elevated white blood cell count, unspecified Code(s): D72.829 - Elevated white blood cell count, unspecified Status: Acute Assessment and Plan: Likely reactive secondary to pulmonary embolism. Monocyte predominance. Improving. She has no other sx to suggest infection. Continue to monitor. (4) Acute on chronic renal failure: Qualifiers: Acute renal failure type: unspecified Chronic kidney disease stage: stage 3 (moderate) Chronic kidney disease stage 3 subtype: unspecified whether 3a or 3b Qualified Code(s): N17.9 - Acute kidney failure, unspecified; N18.30 - Chronic kidney disease, stage 3 unspecified Code(s): N17.9 - Acute kidney failure, unspecified; N18.9 - Chronic kidney disease, unspecified Status: Acute Assessment and Plan: Cr at admission to the emergency department was 1.8 and BUN 55. I suspect pre-renal etiology as she recently started furosemide 40mg PO QD. She has received gentle IV fluids which will be discontinued as MIRIAM has resolved.. Cr has improved to 0.9 and BUN 37. Baseline appears to be 0.6-1.3. Avoid nephrotoxins and renally dose medications. Continue to monitor closely. (5) Renal mass: Code(s): N28.89 - Other specified disorders of kidney and ureter Status: Acute Assessment and Plan: The patient was incidentally found to have a 1.8 cm left renal mass on chest CTA. Renal US demonstrates a benign 1.7 cm cyst of left kidney (6) Benign essential hypertension: Code(s): I10 - Essential (primary) hypertension Status: Chronic Assessment and Plan: Blood pressures are well-controlled. Continue metoprolol. Losartan-hydrochlorothiazide is held for now given MIRIAM. Continue metoprolol. Continue to monitor. (7) Hypokalemia: Code(s): E87.6 - Hypokalemia Status: Acute Assessment and Plan: Resolved. Likely secondary to diuretic use. She does take potassium supplement daily as she is on lasix. Subjective Date/time seen: 03/19/20 09:46 Mrs. Ann is a 65 y.o. female with PMH significant for hypertension who is seen i
[2020-03-19 11:30] LABS: Iron 14 ug/dL (37-170)
[2020-03-19 11:39] LABS: Percent Iron Saturation 7 % (20-50)
[2020-03-19 12:45] LABS: Partial Thromboplastin Time 66.1 SECONDS (22.3-36.8)
[2020-03-19 19:23] LABS: Partial Thromboplastin Time 50.3 SECONDS (22.3-36.8)
[2020-03-19] MEDS: HEPARIN SOD/D5W 100 UNITS/ML 25,000 UNITS/250 ML BAG 15 UNITS IV CONT (19:59)
[2020-03-19] MEDS: HEPARIN SODIUM 5,000 UNITS/ML VIAL 4500 UNITS IV PUSH (19:59)
[2020-03-20] VITALS (7 sets, daily range): BP systolic 131–133; BP diastolic 69–74; PULSE 62–83; RESP 16–20; TEMP 36.6–36.8; O2SAT 95–98
[2020-03-20 02:41] LABS: Hematocrit 29.4 % (37.0-47.0); Hemoglobin 9.9 g/dL (12.0-15.0); Mean Corpuscular HGB Conc 33.7 g/dl (32-36); Mean Corpuscular Hemoglobin 33.1 pg (26-34); Mean Corpuscular Volume 98.3 fl (80-100); Platelet Count Result 388 k/mm3 (150-375); Red Blood Count 2.99 M/mm3 (4.2-5.4); Red Cell Distribution Width 13.5 % (11.5-14.5); White Blood Count 14.1 K/mm3 (4.5-10.0)
[2020-03-20 02:58] LABS: Partial Thromboplastin Time > 200.0 SECONDS (22.3-36.8)
[2020-03-20 03:28] LABS: Anion Gap 4 mmol/L (8-16); Blood Urea Nitrogen 26 mg/dL (7-17); Calcium 8.4 mg/dL (8.4-10.2); Carbon Dioxide 29 mmol/L (22-30); Chloride 101 mmol/L (98-107); Estimated CRCL calculation 63 ml/min; Estimated Glomerular Filt Rate > 60; Glucose 108 mg/dL (65-105); Potassium 3.5 mmol/L (3.4-5.0); Sodium 134 mmol/L (137-145)
--- NOTE | 2020-03-20 03:44 | PC.NURSE ---
0300 requested lab redraw PTT due to the change in value.
[2020-03-20 04:17] LABS: Partial Thromboplastin Time 185.6 SECONDS (22.3-36.8)
[2020-03-20] MEDS: METOPROLOL TARTRATE 25 MG TABLET PO (08:06)
[2020-03-20] MEDS: ASPIRIN 81 MG ENTERIC TABLET PO (08:06)
--- NOTE | 2020-03-20 08:48 | PM.IMPN ---
Progress Note: A&P Assessment and Plan (1) Pulmonary emboli: Qualifiers: Pulmonary embolism type: multiple subsegmental (without acute cor pulmonale) Qualified Code(s): I26.94 - Multiple subsegmental pulmonary emboli without acute cor pulmonale Code(s): I26.99 - Other pulmonary embolism without acute cor pulmonale Status: Acute Assessment and Plan: Pulmonary emboli are likely subacute given that she already has evidence on her CTA of pulmonary hypertension and right-sided cardiomegaly. She reports shortness of breath for 1 month which worsened in the past 3-4 days. She has no prior hx of VTE. Continue heparin gtt. Echocardiogram shows normal LV systolic chamber dimension, hyperdynamic LV systolic function >70%, mild right ventricular chamber enlargement, grade 1 diastolic dysfunction, and no significant valvular abnormalities, pulmonary artery pressure normal at 24mmHg. Venous doppler US shows extensive RLE DVT extending to profunda femoral vein and LLE DVT in the popliteal and posterior tibial veins. She is hemodynamically stable and she is not hypoxic. Telemetry demonstrates sinus rhythm and infrequent PVCs. Eliquis will be covered for the patient at discharge. Continue analgesics as needed. Continue heparin gtt. Monitor H&H closely. (2) Anemia: Code(s): D64.9 - Anemia, unspecified Status: Acute Assessment and Plan: Hb was normal at admission (13.1) and dropped to 9.9. She has no evidence of acute bleeding. Normocytic. Monitor closely for bleeding. Check occult stool testing. Iron studies are consistent with anemia of chronic disease. Check B12 and folate. Monitor CBC daily. Transfuse as needed to maintain Hb >7. (3) Leukocytosis: Qualifiers: Leukocytosis type: unspecified Qualified Code(s): D72.829 - Elevated white blood cell count, unspecified Code(s): D72.829 - Elevated white blood cell count, unspecified Status: Acute Assessment and Plan: Likely reactive secondary to pulmonary embolism. Monocyte predominance. Improved from admission. She has no other sx to suggest infection. Continue to monitor. (4) Acute on chronic renal failure: Qualifiers: Acute renal failure type: unspecified Chronic kidney disease stage: stage 3 (moderate) Chronic kidney disease stage 3 subtype: unspecified whether 3a or 3b Qualified Code(s): N17.9 - Acute kidney failure, unspecified; N18.30 - Chronic kidney disease, stage 3 unspecified Code(s): N17.9 - Acute kidney failure, unspecified; N18.9 - Chronic kidney disease, unspecified Status: Resolved Assessment and Plan: Resolved. Cr at admission to the emergency department was 1.8 and BUN 55. I suspect pre-renal etiology as she recently started furosemide 40mg PO QD. She has received gentle IV fluids which were discontinued as MIRIAM has resolved. Cr has improved to 0.7 and BUN 26. Baseline appears to be 0.6-1.3. Avoid nephrotoxins and renally dose medications. Continue to monitor closely. (5) Renal mass: Code(s): N28.89 - Other specified disorders of kidney and ureter Status: Acute Assessment and Plan: The patient was incidentally found to have a 1.8 cm left renal mass on chest CTA. Renal US demonstrates a benign 1.7 cm cyst of left kidney. Recommend continued outpatient follow-up. (6) Benign essential hypertension: Code(s): I10 - Essential (primary) hypertension Status: Chronic Assessment and Plan: Blood pressures are well-controlled. Continue metoprolol. Losartan-hydrochlorothiazide is held as blood pressures are at target. Continue metoprolol. Continue to monitor. (7) Hypokalemia: Code(s): E87.6 - Hypokalemia Status: Resolved Assessment and Plan: Resolved. Likely secondary to diuretic use. She does take potassium supplement daily as she is on lasix. Subjective Date/time seen: 03/20/20 08:48 Mrs. Ann
[2020-03-20 11:30] LABS: Partial Thromboplastin Time 92.6 SECONDS (22.3-36.8)
[2020-03-20] MEDS: HEPARIN SOD/D5W 100 UNITS/ML 25,000 UNITS/250 ML BAG 15 UNITS IV CONT (12:15)
[2020-03-20 18:13] LABS: Partial Thromboplastin Time 115.4 SECONDS (22.3-36.8)
[2020-03-21 01:13] LABS: Partial Thromboplastin Time 168.9 SECONDS (22.3-36.8)
[2020-03-21 05:05] LABS: Hematocrit 30.3 % (37.0-47.0); Hemoglobin 9.9 g/dL (12.0-15.0); Mean Corpuscular HGB Conc 32.7 g/dl (32-36); Mean Corpuscular Hemoglobin 31.6 pg (26-34); Mean Corpuscular Volume 96.8 fl (80-100); Mean Platelet Volume 11.3 fl (7.4-10.4); Platelet Count Result 466 k/mm3 (150-375); Red Blood Count 3.13 M/mm3 (4.2-5.4); Red Cell Distribution Width 13.5 % (11.5-14.5); White Blood Count 14.5 K/mm3 (4.5-10.0)
[2020-03-21 05:19] LABS: Anion Gap 6 mmol/L (8-16); Blood Urea Nitrogen 16 mg/dL (7-17); Calcium 8.6 mg/dL (8.4-10.2); Carbon Dioxide 31 mmol/L (22-30); Chloride 98 mmol/L (98-107); Estimated CRCL calculation 63 ml/min; Estimated Glomerular Filt Rate > 60; Glucose 97 mg/dL (65-105); Potassium 3.5 mmol/L (3.4-5.0); Sodium 135 mmol/L (137-145)
[2020-03-21 06:00] VITALS: BP 140/76; PULSE 70; RESP 18; TEMP 36.7; O2SAT 96
[2020-03-21 06:21] LABS: Folic Acid 11.8 ng/mL (2.76->20)
[2020-03-21] MEDS: ASPIRIN 81 MG ENTERIC TABLET PO (08:02)
[2020-03-21] MEDS: METOPROLOL TARTRATE 25 MG TABLET PO (08:03)
[2020-03-21] MEDS: APIXABAN 5 MG TABLET 10 MG PO (08:03)
[2020-03-21 08:45] LABS: Partial Thromboplastin Time 52.4 SECONDS (22.3-36.8)
[2020-03-21 09:53] LABS: IFOB Positive Control Positive; Immunochemical Fecal Occult Bl Negative (N)
--- NOTE | 2020-03-21 10:06 | PM.DS ---
DS: Admitting Diagnosis Admitting Diagnosis Admitting Diagnosis: Pulmonary Embolism DS: Discharge Diagnosis Discharge Diagnosis (1) Pulmonary emboli: Qualifiers: Pulmonary embolism type: multiple subsegmental (without acute cor pulmonale) Qualified Code(s): I26.94 - Multiple subsegmental pulmonary emboli without acute cor pulmonale Code(s): I26.99 - Other pulmonary embolism without acute cor pulmonale Status: Acute Assessment and Plan: Discharge Summary (Date of service 03/21/20): Mrs. Ann is a 65 y.o. female with PMH significant for hypertension who presented to the emergency department for the evaluation of generalized weakness, worsening dyspnea, and left-sided pleuritic pain. Initial workup in the emergency department included chest CTA which demonstrated extensive bilateral pulmonary emboli with small peripheral infarcts at the lingula. She was not hypoxic and hemodynamically stable. She was treated with heparin gtt and admitted to the hospitalist service for further evaluation and treatment. Echocardiogram was ordered given concern for pulmonary hypertension and cardiomegaly on chest CTA. Echocardiogram demonstrated normal LV systolic chamber dimension, hyperdynamic LV systolic function >70%, mild right ventricular chamber enlargement, grade 1 diastolic dysfunction, no significant valvular abnormalities, and pulmonary artery pressure normal at 24mmHg. Venous doppler US shows extensive RLE DVT extending to profunda femoral vein and LLE DVT in the popliteal and posterior tibial veins. She did not have any disabling symptoms from her DVT including no significant swelling or phlegmasia cerulea dolens. She remained hemodynamically stable without hypoxia. Her pleuritic pain and dyspnea resolved and she felt much better overall. She was transitioned to PO eliquis at discharge. She was discharged in hemodynamically stable condition on the morning of 03/21/20. She will have home health to continue PT/OT. (2) Anemia: Code(s): D64.9 - Anemia, unspecified Status: Acute Assessment and Plan: Hb was normal at admission (13.1) and dropped to 9.9. She has no evidence of acute bleeding. Normocytic. Monitor closely for bleeding. Guaiac stool testing was negative. Iron studies were consistent with anemia of chronic disease. Vitamin B12 and folate were sufficient. (3) Leukocytosis: Qualifiers: Leukocytosis type: unspecified Qualified Code(s): D72.829 - Elevated white blood cell count, unspecified Code(s): D72.829 - Elevated white blood cell count, unspecified Status: Acute Assessment and Plan: Likely reactive secondary to pulmonary embolism. Monocyte predominance and improved during her hospital stay. (4) Acute on chronic renal failure: Qualifiers: Acute renal failure type: unspecified Chronic kidney disease stage: stage 3 (moderate) Chronic kidney disease stage 3 subtype: unspecified whether 3a or 3b Qualified Code(s): N17.9 - Acute kidney failure, unspecified; N18.30 - Chronic kidney disease, stage 3 unspecified Code(s): N17.9 - Acute kidney failure, unspecified; N18.9 - Chronic kidney disease, unspecified Status: Resolved Assessment and Plan: Resolved. Cr at admission to the emergency department was 1.8 and BUN 55. I suspect pre-renal etiology as she recently started furosemide 40mg PO QD. She has received gentle IV fluids which were discontinued as MIRIAM resolved. Cr improved and was 0.8 the day of discharge which appears consistent with baseline. (5) Renal mass: Code(s): N28.89 - Other specified disorders of kidney and ureter Status: Acute Assessment and Plan: The patient was incidentally found to have a 1.8 cm left renal mass on chest CTA. Renal US demonstrates a benign 1.7 cm cyst of left kidney. Recommend continued outpatient follow-up. (6) Benign essential hypertension: Code(s): I10
== END 2020-03-21 12:19 | disposition home health service (06) ==
LOC: ANHED 03-18 00:48 → ANH2MED 03-18 03:59
PROVIDERS: Emergency Medicine; Admitting Provider Family Medicine; Emergency Provider Emergency Medicine; PCP Nurse Practitioner; Visit Provider Physician Assistant
DX: I26.94 Multiple subsegmental thrombotic pulmonary emboli without acute cor pulmonale (principal); I82.432 Acute embolism and thrombosis of left popliteal vein; I82.411 Acute embolism and thrombosis of right femoral vein; R07.89 Other chest pain; I12.9 Hypertensive chronic kidney disease with stage 1 through stage 4 chronic kidney disease, or unspecified chronic kidney disease; D72.829 Elevated white blood cell count, unspecified; D64.9 Anemia, unspecified; N18.30 Chronic kidney disease, stage 3 unspecified; R06.02 Shortness of breath
CPT/HCPCS: 36415; 71045; 71275; 76775; 80048; 80053; 81001; 82274; 82607; 82728; 82746; 83540; 83550; 83735; 83880; 84484; 85025; 85027; 85380; 85610; 85730; 93306; 93970; 96361; 96365; 96366; 96368; 97110; 97116; 97162; 97165; 97530; 97535; 99285; A9270; G0378; J1644; J3480; J7030; Q9967

== ENCOUNTER 2020-03-26 09:30 | Outpatient (CLI) | payer MEDICARE, SELFPAY ==
[2020-03-26 10:07] LABS: Hematocrit 31.7 % (37.0-47.0); Hemoglobin 10.7 g/dL (12.0-15.0); Mean Corpuscular HGB Conc 33.8 g/dl (32-36); Mean Corpuscular Hemoglobin 32.4 pg (26-34); Mean Corpuscular Volume 96.1 fl (80-100); Platelet Count Result 797 k/mm3 (150-375); Red Cell Distribution Width 13.7 % (11.5-14.5); White Blood Count 10.5 K/mm3 (4.5-10.0)
[2020-03-26 10:29] LABS: Anion Gap 3 mmol/L (8-16); Blood Urea Nitrogen 12 mg/dL (7-17); Calcium 9.1 mg/dL (8.4-10.2); Carbon Dioxide 32 mmol/L (22-30); Chloride 99 mmol/L (98-107); Estimated Glomerular Filt Rate > 60; Glucose 92 mg/dL (65-105); Potassium 4.2 mmol/L (3.4-5.0); Sodium 134 mmol/L (137-145)
== END 2020-03-26 09:31 | disposition home or self-care (01) ==
PROVIDERS: PCP Nurse Practitioner; Visit Provider Physician Assistant
DX: N17.9 Acute kidney failure, unspecified (principal); D64.9 Anemia, unspecified; D72.829 Elevated white blood cell count, unspecified
CPT/HCPCS: 36415; 80048; 85027

== ENCOUNTER 2020-05-06 13:47 | Outpatient (CLI) | payer MEDICARE, SELFPAY ==
--- NOTE | ~2020-05-06 | US_ITS ---
EXAMINATION: US venous doppler LE EXAM DATE: 05/06/2020 15:27 INDICATION: DVT follow-up. On blood thinners. TECHNIQUE: Multiple grayscale, color flow and Doppler images of the lower extremity deep venous syste ms bilaterally were obtained and reviewed. Comparison is made to prior examination from 03/18/2020. FINDINGS: RIGHT SIDE Common femoral: -------- Normal. Profunda femoral: -------Thrombosed. Femoral: Thrombosed. Popliteal: Thrombosed. Posterior tibial: ---------Thrombosed. Peroneal: Thrombosed. Gastrocnemius: Thrombosed. Soleus: Not visualized. Greater saphenous: ----- Normal. Lesser saphenous: ------ Not visualized. Extensive persistent thrombus in this leg. LEFT SIDE Common femoral: -------- Normal. Profunda femoral: ------- Normal. Femoral: Normal. Popliteal: Thrombosed. Posterior tibial: ---------Thrombosed. Peroneal: Thrombosed. Gastrocnemius: Not visualized. Soleus: Not visualized. Greater saphenous: ----- Normal. Lesser saphenous: ------ Not visualized. Persistent left lower leg thrombus. IMPRESSION: 1. Persistent extensive right, moderate left-sided DVT. Reviewed, dictated and finalized at location A. [employer]
[2020-05-06 15:03] LABS: Basophils Absolute Auto 0.1 K/mm3 (0.0-0.1); Eosinophils Absolute Auto 0.2 K/mm3 (0-0.3); Eosinophils Percent Auto 1.5 % (0-4.4); Hematocrit 39.4 % (37.0-47.0); Hemoglobin 12.7 g/dL (12.0-15.0); Immature Granulocyte Absolute 0.05 K/mm3 (0.00-0.031); Immature Granulocyte Percent A 0.5 % (0-0.5); Lymphocytes Absolute Auto 2.76 K/mm3 (0.9-3.2); Lymphocytes Percent Auto 27.1 % (18.3-44.2); Mean Corpuscular HGB Conc 32.2 g/dl (32-36); Mean Corpuscular Hemoglobin 31.4 pg (26-34); Mean Corpuscular Volume 97.3 fl (80-100); Monocytes Absolute Auto 1.5 K/mm3 (0.1-0.6); Monocytes Percent Auto 14.4 % (2.6-8.5); Neutrophils Absolute Auto 5.7 K/mm3 (1.3-6.7); Neutrophils Percent Auto 55.5 % (45.5-73.1); Platelet Count Result 439 k/mm3 (150-375); Red Blood Count 4.05 M/mm3 (4.2-5.4); Red Cell Distribution Width 14.3 % (11.5-14.5); White Blood Count 10.2 K/mm3 (4.5-10.0)
[2020-05-06 15:39] LABS: Erythrocyte Sedimentation Rate 20 mm/hr (0-20)
[2020-05-06 15:43] LABS: Alanine Aminotransferase 11 U/L (4-35); Albumin Level 4.1 g/dL (3.5-5.1); Alkaline Phosphatase 40 U/L (38-126); Anion Gap 4 mmol/L (8-16); Aspartate Amino Transferase 22 U/L (14-36); Bilirubin,Total 0.5 mg/dL (0.2-1.3); Blood Urea Nitrogen 18 mg/dL (7-17); Calcium 9.2 mg/dL (8.4-10.2); Carbon Dioxide 36 mmol/L (22-30); Chloride 96 mmol/L (98-107); Estimated Glomerular Filt Rate > 60; Glucose 97 mg/dL (65-105); Potassium 3.6 mmol/L (3.4-5.0); Sodium 136 mmol/L (137-145)
[2020-05-06 16:14] LABS: Iron 100 ug/dL (37-170)
[2020-05-06 16:23] LABS: Percent Iron Saturation 32 % (20-50)
[2020-05-06 16:39] LABS: CRP < 0.5 mg/dL (<1.0)
== END 2020-05-06 13:48 | disposition home or self-care (01) ==
PROVIDERS: PCP Family Medicine; Visit Provider Internal Medicine Hematology & Oncology
DX: I82.4Y3 Acute embolism and thrombosis of unspecified deep veins of proximal lower extremity, bilateral (principal); D64.9 Anemia, unspecified; D50.9 Iron deficiency anemia, unspecified
CPT/HCPCS: 36415; 80053; 82607; 82728; 83540; 83550; 85025; 85652; 86140; 93970

== ENCOUNTER 2020-08-01 10:43 | Outpatient (CLI) | payer MEDICARE, SELFPAY ==
--- NOTE | ~2020-08-01 | US_ITS ---
EXAMINATION: US venous doppler [facility] DATE: 08/01/2020 11:44 INDICATION: Acute deep venous thrombosis of the proximal veins of the bilateral lower limbs. TECHNIQUE: Grayscale ultrasound images without and with compression and Doppler ultrasound images of the bilateral lower extremity veins were obtained. COMPARISON: 05/06/2020 FINDINGS: Persistent noncompressible occlusive appearing thrombus present from the proximal to distal right fem oral vein and into the right popliteal vein. Again seen is a linear echogenic filling defect within t he proximal right profunda (deep) femoral vein likely related to chronic nonocclusive thrombus. The v isualized portions of right common femoral vein, posterior tibial veins, peroneal veins, gastrocnemiu s vein and greater saphenous vein outflow are patent. Persistent thrombus in the left popliteal vein. The visualized portions of left common femoral vein, profunda femoral vein, femoral vein, posterior tibial veins, peroneal veins, gastrocnemius vein and g reater saphenous vein outflow are patent. IMPRESSION: 1. Deep venous thrombosis in the bilateral lower limbs with decrease in the prior clot burden with r esidual thrombus in the left popliteal vein and the right profunda femoral, femoral and popliteal vei ns. Reviewed, dictated and finalized at location B. IMPRESSION: 1. Deep venous thrombosis in the bilateral lower limbs with decrease in the pr ior clot burden with residual thrombus in the left popliteal vein and the right profunda femoral, femoral and popliteal veins.
[2020-08-01 12:48] LABS: Hematocrit 40.4 % (37.0-47.0); Hemoglobin 13.4 g/dL (12.0-15.0); Mean Corpuscular HGB Conc 33.2 g/dl (32-36); Mean Corpuscular Hemoglobin 30.1 pg (26-34); Mean Corpuscular Volume 90.8 fl (80-100); Mean Platelet Volume 11.3 fl (7.4-10.4); Platelet Count Result 298 k/mm3 (150-375); Red Blood Count 4.45 M/mm3 (4.2-5.4); Red Cell Distribution Width 15.9 % (11.5-14.5); White Blood Count 8.9 K/mm3 (4.5-10.0)
[2020-08-01 13:11] LABS: Iron 94 ug/dL (37-170)
[2020-08-01 13:21] LABS: Percent Iron Saturation 39 % (20-50)
== END 2020-08-01 10:44 | disposition home or self-care (01) ==
PROVIDERS: PCP Family Medicine; Visit Provider Internal Medicine Hematology & Oncology
DX: I82.4Y3 Acute embolism and thrombosis of unspecified deep veins of proximal lower extremity, bilateral (principal); D50.9 Iron deficiency anemia, unspecified
CPT/HCPCS: 36415; 82607; 82728; 83540; 83550; 85027; 93970

== ENCOUNTER 2020-09-10 11:01 | Outpatient (CLI) | payer MEDICARE, SELFPAY ==
--- NOTE | ~2020-09-10 | MM_ITS ---
EXAMINATION: MM screening layne BI w ruth HISTORY: Screening mammogram TECHNIQUE: Craniocaudal and mediolateral oblique 3-D tomosynthesis images were obtained and synthetic 2-D images were generated. Rotated lateral cc view of right breast. CAD analysis was submitted and i nterpreted. COMPARISON: 06/30/2019 bilateral digital screening mammogram BREAST PARENCHYMAL COMPOSITION: The breasts are heterogeneously dense, which may obscure small masses . FINDINGS: There is no evidence of suspicious mass, calcification, or architectural distortion to sugg est malignancy in either breast. There has been no suspicious interval change. IMPRESSION: 1. No mammographic evidence of malignancy. 2. Recommend routine screening mammography in one year. BI-RADS Category 1: Negative Reviewed, dictated and finalized at location A.
== END 2020-09-10 11:02 | disposition home or self-care (01) ==
LOC: ANHIMG 11:06
PROVIDERS: PCP Family Medicine; Visit Provider Nurse Practitioner
DX: Z12.31 Encounter for screening mammogram for malignant neoplasm of breast (principal)
CPT/HCPCS: 77063; 77067

== ENCOUNTER 2020-11-01 10:22 | Outpatient (CLI) | payer MEDICARE, SELFPAY ==
--- NOTE | ~2020-11-01 | US_ITS ---
EXAMINATION: US venous doppler [facility] DATE: 11/01/2020 10:58 INDICATION: Acute deep vein thrombosis of maximal vein. TECHNIQUE: Grayscale ultrasound images without and with compression and Doppler ultrasound images of the bilateral lower extremity veins were obtained. COMPARISON: Ultrasound 08/01/2020 FINDINGS: The visualized portions of right common femoral vein, profunda (deep) femoral vein, popliteal vein, p eroneal veins, posterior tibial veins, and greater saphenous vein outflow are patent. There is thromb us in right femoral vein. The visualized portions of left common femoral vein, profunda femoral vein, femoral vein, popliteal v ein, peroneal veins, posterior tibial veins, and greater saphenous vein outflow are patent. IMPRESSION: 1. Deep vein thrombosis involving right femoral vein with interval improvement in distribution. Reviewed, dictated and finalized at location A.
== END 2020-11-01 10:23 | disposition home or self-care (01) ==
PROVIDERS: PCP Family Medicine; Visit Provider Internal Medicine Hematology & Oncology
DX: I82.411 Acute embolism and thrombosis of right femoral vein (principal)
CPT/HCPCS: 93970

== ENCOUNTER 2020-11-09 13:58 | Outpatient (CLI) | payer MEDICARE, SELFPAY ==
[2020-11-09 14:18] LABS: Basophils Absolute Auto 0.1 K/mm3 (0.0-0.1); Basophils Percent Auto 0.7 % (0.2-1.2); Eosinophils Absolute Auto 0.1 K/mm3 (0-0.3); Eosinophils Percent Auto 1.4 % (0-4.4); Hemoglobin 13.1 g/dL (12.0-15.0); Immature Granulocyte Absolute 0.04 K/mm3 (0.00-0.031); Immature Granulocyte Percent A 0.4 % (0-0.5); Lymphocytes Absolute Auto 2.26 K/mm3 (0.9-3.2); Mean Corpuscular HGB Conc 33.6 g/dl (32-36); Mean Corpuscular Hemoglobin 32.6 pg (26-34); Mean Platelet Volume 10.2 fl (7.4-10.4); Monocytes Absolute Auto 1.7 K/mm3 (0.1-0.6); Neutrophils Absolute Auto 5.6 K/mm3 (1.3-6.7); Neutrophils Percent Auto 57.5 % (45.5-73.1); Platelet Count Result 328 k/mm3 (150-375); Red Blood Count 4.02 M/mm3 (4.2-5.4); Red Cell Distribution Width 14.2 % (11.5-14.5); White Blood Count 9.8 K/mm3 (4.5-10.0)
[2020-11-09 14:23] LABS: Blood Urea Nitrogen 23 mg/dL (8-26); Carbon Dioxide 29 mmol/L (22-30); Chloride 99 mmol/L (98-109); Estimated Glomerular Filt Rate > 60; Glucose 91 mg/dL (70-105); Potassium 3.7 mmol/L (3.5-4.9); Sodium 139 mmol/L (138-146)
[2020-11-09 20:05] LABS: Folic Acid 8.1 ng/mL (2.76->20)
== END 2020-11-09 13:59 | disposition home or self-care (01) ==
LOC: ANHLAB 14:00
PROVIDERS: PCP Family Medicine; Visit Provider Internal Medicine Hematology & Oncology
DX: D64.9 Anemia, unspecified (principal)
CPT/HCPCS: 36415; 80048; 82607; 82746; 85025

== ENCOUNTER 2021-02-06 08:00 | Outpatient (CLI) | payer MEDICARE, SELFPAY ==
--- NOTE | ~2021-02-06 | US_ITS ---
EXAMINATION: US venous doppler [facility] DATE: 02/06/2021 08:52 INDICATION: Recent acute deep venous thrombosis of the proximal vein of the right lower limb. TECHNIQUE: Grayscale ultrasound images without and with compression and Doppler ultrasound images of the right lower extremity veins were obtained. COMPARISON: 11/01/2020 FINDINGS: Persistent deep venous thrombosis in the mid to distal right femoral vein. This appears to remain occ lusive in the mid right femoral vein with no internal flow evident on color Doppler. The visualized p ortions of right common femoral vein, profunda (deep) femoral vein, popliteal vein, peroneal trunk, p osterior tibial veins, peroneal veins, gastrocnemius vein and greater saphenous vein outflow are valenzuela nt. IMPRESSION: 1. Persistent chronic deep venous thrombosis in the mid to distal right femoral vein. No new deep ve nous thrombosis. Reviewed, dictated and finalized at location A. IMPRESSION: 1. Persistent chronic deep venous thrombosis in the mid to distal right femora l vein. No new deep venous thrombosis.
== END 2021-02-06 08:01 | disposition home or self-care (01) ==
LOC: ANHIMG 08:01
PROVIDERS: PCP Family Medicine; Visit Provider Internal Medicine Hematology & Oncology
DX: I82.411 Acute embolism and thrombosis of right femoral vein (principal)
CPT/HCPCS: 93971

== ENCOUNTER 2021-09-23 08:11 | Outpatient (CLI) | payer MEDICARE, SELFPAY ==
--- NOTE | ~2021-09-23 | MM_ITS ---
EXAMINATION: MM screening layne BI w ruth HISTORY: Screening mammogram TECHNIQUE: Craniocaudal and mediolateral oblique 3-D tomosynthesis images were obtained and synthetic 2-D images were generated. CAD analysis was submitted and interpreted. COMPARISON: 09/10/2020, 06/30/2019 bilateral screening mammogram examinations BREAST PARENCHYMAL COMPOSITION: The breasts are heterogeneously dense, which may obscure small masses . FINDINGS: There is no evidence of suspicious mass, calcification, or architectural distortion to sugg est malignancy in either breast. There has been no suspicious interval change. IMPRESSION: 1. No mammographic evidence of malignancy. 2. Recommend routine screening mammography in one year. BI-RADS Category 1: Negative Reviewed, dictated and finalized at location A.
== END 2021-09-23 08:12 | disposition home or self-care (01) ==
LOC: ANHIMG 08:13
PROVIDERS: PCP Family Medicine; Visit Provider Family Medicine
DX: Z12.31 Encounter for screening mammogram for malignant neoplasm of breast (principal)
CPT/HCPCS: 77063; 77067

== ENCOUNTER 2022-02-22 10:34 | Outpatient (CLI) | payer MEDICARE, SELFPAY ==
[2022-02-22 18:44] LABS: Basophils Absolute Auto 0.1 K/mm3 (0.0-0.1); Eosinophils Absolute Auto 0.1 K/mm3 (0-0.3); Eosinophils Percent Auto 1.4 % (0-4.4); Hematocrit 41.4 % (37.0-47.0); Hemoglobin 13.5 g/dL (12.0-15.0); Immature Granulocyte Absolute 0.03 K/mm3 (0.00-0.031); Immature Granulocyte Percent A 0.3 % (0-0.5); Lymphocytes Absolute Auto 2.97 K/mm3 (0.9-3.2); Lymphocytes Percent Auto 32.4 % (18.3-44.2); Mean Corpuscular HGB Conc 32.6 g/dl (32-36); Mean Corpuscular Hemoglobin 32.1 pg (26-34); Mean Corpuscular Volume 98.6 fl (80-100); Mean Platelet Volume 11.5 fl (7.4-10.4); Monocytes Absolute Auto 1.4 K/mm3 (0.1-0.6); Monocytes Percent Auto 15.3 % (2.6-8.5); Neutrophils Absolute Auto 4.5 K/mm3 (1.3-6.7); Neutrophils Percent Auto 49.6 % (45.5-73.1); Platelet Count Result 321 k/mm3 (150-375); Red Cell Distribution Width 15.2 % (11.5-14.5); White Blood Count 9.2 K/mm3 (4.5-10.0)
[2022-02-22 19:39] LABS: Cholesterol 213 mg/dL (0-200); HDL Direct 88 mg/dL; Triglycerides 53 mg/dL (<150)
[2022-02-22 19:51] LABS: LDL Cholesterol Direct 95 mg/dL
[2022-02-22 20:17] LABS: Vitamin D 25 Hydroxy 35.1 ng/mL
== END 2022-02-22 10:35 | disposition home or self-care (01) ==
PROVIDERS: PCP Family Medicine; Visit Provider Nurse Practitioner
DX: E78.5 Hyperlipidemia, unspecified (principal); I10 Essential (primary) hypertension; R53.83 Other fatigue; E53.8 Deficiency of other specified B group vitamins; E55.9 Vitamin D deficiency, unspecified
CPT/HCPCS: 36415; 80061; 82306; 82607; 84443; 85025

== ENCOUNTER 2022-05-04 10:15 | Outpatient (RCR) | payer MEDICARE, SELFPAY ==
--- NOTE | 2022-02-06 09:18 | PCPTNOTE ---
Patient called & cancelled scheduled appointment this date due to she couldn't get out of the door in time. Rescheduled for
--- NOTE | 2022-02-15 14:28 | PTOPEVAL1 ---
Assessment and note entered by Tera Sprague, PT Evaluation Information Assessment Status Evaluation Diagnosis unsteadiness on feet Onset 5 months ago Subjective Information Patient reports she has been feeling unsteady on her feet especially doing stairs, curb steps, and walking outside of her apartment. She uses her quad cane outside of her apartment and furniture surfs or holds onto fletcher in her apartment. The patient has not had a fall, but has stopped going out as much as she wants to secondary to fear of falling. The patient previously did physical therapy and felt in better shape then, but had to stop for financial considerations and would like to come back again. Reported Pain Level Pain Score 0: Self Report Assessment PT Clinical Summary Lee Ann is a 66 year old female coming into the clinic with a diagnosis of unsteadiness on her feet. She walks in with a wide stance toes out walking pattern with a large based quad cane. Patient has a decreased mariam speed of 1.66 feet /second based on her 6 minute walk test. Patient has decreased sensation in her feet missing 3/10 spots when touching with light touch. Also has weakness in BETTY hips, L knee, and R ankle. Able to do 10 sit to stands with the 30 second sit to stand test and scores a Tinetti score of 17/28 which is indicative of a high fall risk. Skilled therapy can work on addressing her strength deficits and improve endurance and balance which should increase her Tinetti score and reduce chance of falls. Reduced fear of falling would improve patient's quality of life. Plan of Care Interventions Electrical Stimulation,Gait Training,Hot Pack/Cold Pack,Manual Therapy,Neuro Re-education,Patient/ Caregiver Education,Therapeutic Activities, Therapeutic Exercise PT Services Indicated Yes Treatment Frequency and 2x/wk for 4 weeks Duration These treatments will address the objective and functional deficits as defined above. The patient will be advanced safely and appropriately in order for the patient to progress towards his/her prior level of function. Additional exercises will be introduced and as well as a comprehensive home exercise program upon discharge, if needed, ?to ensure carryover of functional gains achieved in the clinic. This treatment plan has been reviewed and agreement upon by the patient.
--- NOTE | 2022-03-06 13:43 | PCPTNOTE ---
Patient called to cancel due to schedule conflict.
--- NOTE | 2022-03-15 10:09 | PTOPPROG ---
Assessment and note entered by Katja Correa, PT, DPT Evaluation Information Assessment Status Progress Diagnosis unsteadiness on feet Onset 5 months ago Subjective Information Pt states she is doing a little bit better, she states she is trying to do her exercises. She states she still struggles getting up and down from a chair. She states she is not at dizzy as she initially was, she feels a little more confident while walking. Pt states she would like to continue improving on the stairs. Assessment PT Clinical Summary Rebecca Nance presents to therapy today for her progress report following 4 visits of skilled therapy to treat her diagnosis of unsteadiness. Today she continues to require increased time to complete the TUG and 5xSTS, and has a decreased Tinetti score, all placing her at an increased risk for falls. She also have a very decreased gait speed compared to age matched normative values. Continuation of skilled physical therapy services are indicated to improve balance and mobility, to improve strength, to minimize fall risk, and to promote safety with functional mobility. Plan of Care Interventions Electrical Stimulation,Gait Training,Hot Pack/Cold Pack,Manual Therapy,Neuro Re-education,Patient/ Caregiver Educati,Therapeutic Activities, Therapeutic Exercise PT Services Indicated Yes Treatment Frequency and 2x/wk for 5 wks Duration These treatments will address the objective and functional deficits as defined above. The patient will be advanced safely and appropriately in order for the patient to progress towards his/her prior level of function. Additional exercises will be introduced and as well as a comprehensive home exercise program upon discharge, if needed, ?to ensure carryover of functional gains achieved in the clinic. This treatment plan has been reviewed and agreement upon by the patient.
--- NOTE | 2022-03-30 09:37 | PCPTNOTE ---
Addendum entered by Katja Correa, PT, DPT 03/30/22 12:23: Patient called & cancelled scheduled appointment this date due to being sick. Original Note: Patient did not show up for scheduled appointment this date.
--- NOTE | 2022-04-10 07:59 | PCPTNOTE ---
Patient called to cancel this date due to illness.
--- NOTE | 2022-04-13 08:01 | PCPTNOTE ---
Patient called to cancel due to illness.
--- NOTE | 2022-04-19 11:38 | PCPTNOTE ---
Patient called & cancelled scheduled appointment this date due to inclement weather.
--- NOTE | 2022-04-25 13:28 | PTOPPROG ---
Assessment and note entered by Katja Correa, PT, DPT Evaluation Information Assessment Status Progress Diagnosis unsteadiness on feet Onset 5 months ago Subjective Information Pt states therapy is doing well. She states she would like to continue therapy to continue getting stronger. She states she has improved her balance but still has a fear falling. Assessment PT Clinical Summary Rebecca Nance presents to therapy today for her progress report following 9 visits of skilled therapy. Today she demonstrates decreased time required to complete the TUG and the 5xSTS, but demonstrates a mildly decreased gait speed during the timed walking test. She continues to have decreased balance, decreased strength, and decreased mobility from what is expected. Continuation of skilled physical therapy services are indicated to continue progress towards goals, to improve strength, to minimize fall risk, and to promote functional mobility. Plan of Care Interventions Electrical Stimulation,Gait Training,Hot Pack/Cold Pack,Manual Therapy,Neuro Re-education,Patient/ Caregiver Educati,Therapeutic Activities, Therapeutic Exercise PT Services Indicated Yes Treatment Frequency and 2x/wk for 5 wks Duration These treatments will address the objective and functional deficits as defined above. The patient will be advanced safely and appropriately in order for the patient to progress towards his/her prior level of function. Additional exercises will be introduced and as well as a comprehensive home exercise program upon discharge, if needed, ?to ensure carryover of functional gains achieved in the clinic. This treatment plan has been reviewed and agreement upon by the patient.
--- NOTE | 2022-05-02 09:09 | PCPTNOTE ---
Patient called & cancelled scheduled appointment this date due to being ill.
--- NOTE | 2022-05-15 13:12 | PCPTNOTE ---
This treatment is being continued on visit number [id number]. Please see documentation on both accounts to view progress. Completed interventions, outcomes, and problems have been marked as Inactive to facilitate the copying of the Care plan routine for recurring accounts.
== END 2022-05-15 07:44 | disposition home or self-care (01) ==
LOC: ANHGOSHPT 10:15
PROVIDERS: PCP Family Medicine; Visit Provider Nurse Practitioner
DX: R26.81 Unsteadiness on feet (principal)
CPT/HCPCS: 97110; 97112; 97161; 97530

== ENCOUNTER 2022-05-31 10:00 | Outpatient (RCR) | payer MEDICARE, SELFPAY ==
--- NOTE | 2022-05-15 09:10 | PCPTNOTE ---
Patient called to cancel appointment this date due to illness.
--- NOTE | 2022-05-15 13:12 | PCPTNOTE ---
The treatment documented on this account is a continuation of the treatment documented on visit number [id number]. Please see documentation on both accounts to view progress. The Plan of Care has been transitioned and updated within the new V#. I have addressed and agree with the discipline specific Problems, Interventions, and Goals for the current certification period. Completed interventions, outcomes, and problems have been marked as Inactive to facilitate the copying of the Care plan routine for recurring accounts.
--- NOTE | 2022-05-17 08:22 | PCPTNOTE ---
Patient called to cancel this date due to illness.
--- NOTE | 2022-05-25 10:03 | PCPTNOTE ---
Patient canceled this date due to feeling sick from recent shot.
--- NOTE | 2022-05-29 08:03 | PCPTNOTE ---
Patient called to cancel due to illness.
--- NOTE | 2022-05-31 10:38 | PTOPDC ---
Assessment and note entered by Katja Correa, PT, DPT Evaluation Information Assessment Status Progress Diagnosis unsteadiness on feet Subjective Information Pt states she is not well. She states she has been non compliant with her exercises d/t not having any energy. She states she plans to start doing chair yoga but has not done this yet. Reported Pain Level Pain Score 0: Self Report Assessment PT Clinical Summary Rebecca Nance presents to therapy today for her progress report following 12 visits of therapy from 02/15/22 to 05/31/22. Today she demonstrates minimal improvement and even some regression compared to her initial visit. Reinforcement was given on the importance of daily movement to maintain general mobility. Pt states she knows her lack of progress is d/t her poor compliance. While she still has functional and strength deficits, she will be discharged at this time d/t poor compliance and lack of progress with therapy. Discussed with patient ways to increase daily mobility. Plan of Care PT Services Indicated No Treatment Frequency and to be discharged Duration
== END 2022-06-08 10:10 | disposition home or self-care (01) ==
LOC: ANHGOSHPT 10:00
PROVIDERS: PCP Family Medicine; Visit Provider Nurse Practitioner
DX: R26.81 Unsteadiness on feet (principal)
CPT/HCPCS: 97110; 97112; 97530

== ENCOUNTER 2022-08-07 19:38 | Outpatient (NON) | payer MEDICARE, SELFPAY | END 2022-08-07 19:39 | disposition home or self-care (01) | LOC: ANHLAB 19:40 | PROVIDERS: PCP Family Medicine; Visit Provider Nurse Practitioner | DX: R39.9 Unspecified symptoms and signs involving the genitourinary system (principal) | CPT/HCPCS: 87077; 87086; 87186 ==

== ENCOUNTER → 2022-08-31 09:42 | Outpatient (CLI) | payer MEDICARE, SELFPAY ==
--- NOTE | ~2022-08-31 | US_ITS ---
EXAMINATION: US venous doppler LE RT DATE: 08/31/2022 10:09 INDICATION: Acute deep venous thrombosis of the proximal veins of both lower extremities TECHNIQUE: Grayscale ultrasound images without and with compression and Doppler ultrasound images of the right lower extremity veins were obtained. COMPARISON: 02/06/2021 FINDINGS: No significant interval change in partially compressible nonocclusive peripheral thrombus with linear echogenic margins mid to distal right femoral vein. The visualized portions of right common femoral vein, profunda (deep) femoral vein, popliteal vein, peroneal trunk, posterior tibial veins, peroneal veins, gastrocnemius vein and greater saphenous vein outflow are patent. IMPRESSION: 1. Persistent nonocclusive chronic deep venous thrombosis in the mid to distal right femoral vein. N o acute deep venous thrombosis. Reviewed, dictated and finalized at location B. IMPRESSION: 1. Persistent nonocclusive chronic deep venous thrombosis in the mid to distal right femoral vein. No acute deep venous thrombosis.
== END ==
PROVIDERS: PCP Family Medicine; Visit Provider Internal Medicine Hematology & Oncology
DX: I82.4Y3 Acute embolism and thrombosis of unspecified deep veins of proximal lower extremity, bilateral (principal)
CPT/HCPCS: 93971

== ENCOUNTER 2023-02-04 09:16 | Outpatient (CLI) | payer MEDICARE, SELFPAY ==
[2023-02-04 19:41] LABS: Alanine Aminotransferase 18 U/L (6-35); Albumin Level 4.2 g/dL (3.5-5.1); Alkaline Phosphatase 52 U/L (38-126); Anion Gap 3 mmol/L (8-16); Aspartate Amino Transferase 34 U/L (14-36); Bilirubin,Total 0.7 mg/dL (0.2-1.3); Blood Urea Nitrogen 20 mg/dL (7-17); Carbon Dioxide 36 mmol/L (22-30); Chloride 97 mmol/L (98-107); Cholesterol 211 mg/dL (0-200); Estimated Glomerular Filt Rate > 60; Glucose 76 mg/dL (65-110); HDL Direct 103 mg/dL; Sodium 136 mmol/L (137-145); Triglycerides 73 mg/dL (<150)
[2023-02-04 19:52] LABS: LDL Cholesterol Direct 89 mg/dL
[2023-02-04 20:47] LABS: Basophils Absolute Auto 0.1 K/mm3 (0.0-0.1); Basophils Percent Auto 0.9 % (0.2-1.2); Eosinophils Absolute Auto 0.3 K/mm3 (0-0.3); Eosinophils Percent Auto 3.3 % (0-4.4); Hematocrit 44.6 % (37.0-47.0); Hemoglobin 14.7 g/dL (12.0-15.0); Immature Granulocyte Absolute 0.04 K/mm3 (0.00-0.031); Immature Granulocyte Percent A 0.4 % (0-0.5); Lymphocytes Absolute Auto 2.98 K/mm3 (0.9-3.2); Lymphocytes Percent Auto 31.1 % (18.3-44.2); Mean Corpuscular Volume 97.2 fl (80-100); Mean Platelet Volume 12.1 fl (7.4-10.4); Monocytes Absolute Auto 1.6 K/mm3 (0.1-0.6); Monocytes Percent Auto 16.2 % (2.6-8.5); Neutrophils Absolute Auto 4.6 K/mm3 (1.3-6.7); Neutrophils Percent Auto 48.1 % (45.5-73.1); Platelet Count Result 304 k/mm3 (150-375); Red Blood Count 4.59 M/mm3 (4.2-5.4); Red Cell Distribution Width 14.6 % (11.5-14.5); White Blood Count 9.6 K/mm3 (4.5-10.0)
[2023-02-05 19:26] LABS: Vitamin D 25 Hydroxy 22.9 ng/mL
== END 2023-02-04 09:17 | disposition home or self-care (01) ==
PROVIDERS: PCP Family Medicine; Visit Provider Family Medicine
DX: E78.5 Hyperlipidemia, unspecified (principal); E55.9 Vitamin D deficiency, unspecified; I10 Essential (primary) hypertension; E53.8 Deficiency of other specified B group vitamins
CPT/HCPCS: 36415; 80053; 80061; 82306; 82607; 84443; 85025

== ENCOUNTER 2023-02-22 12:02 | Outpatient (CLI) | payer MEDICARE, SELFPAY ==
[2023-02-22 12:15] LABS: Hematocrit 41.4 % (37.0-47.0); Hemoglobin 13.8 g/dL (12.0-15.0); Mean Corpuscular HGB Conc 33.3 g/dl (32-36); Mean Corpuscular Hemoglobin 32.2 pg (26-34); Mean Corpuscular Volume 96.5 fl (80-100); Mean Platelet Volume 10.5 fl (7.4-10.4); Platelet Count Result 322 k/mm3 (150-375); Red Blood Count 4.29 M/mm3 (4.2-5.4); White Blood Count 8.6 K/mm3 (4.5-10.0)
[2023-02-22 12:19] LABS: Blood Urea Nitrogen 24 mg/dL (8-26); Carbon Dioxide 31 mmol/L (22-30); Chloride 95 mmol/L (98-109); Estimated Glomerular Filt Rate > 60; Glucose 93 mg/dL (70-105); Potassium 3.6 mmol/L (3.5-4.9); Sodium 139 mmol/L (138-146)
[2023-02-22 17:33] LABS: Folic Acid 5.5 ng/mL (2.76->20)
== END 2023-02-22 12:03 | disposition home or self-care (01) ==
LOC: ANHLAB 12:04
PROVIDERS: PCP Family Medicine; Visit Provider Internal Medicine Hematology & Oncology
DX: D64.9 Anemia, unspecified (principal)
CPT/HCPCS: 36415; 80047; 82607; 82746; 85027

== ENCOUNTER 2023-03-30 19:27 | Emergency (ER) | payer MEDICARE, SELFPAY ==
[2023-03-30] VITALS (19 sets, daily range): BP systolic 169; BP diastolic 99; PULSE 61–68; RESP 11–25; TEMP 36.7; O2SAT 94–100
--- NOTE | ~2023-03-30 | XR_ITS ---
XR chest 1V portable 03/30/2023 20:20 Indication: Weakness. Dyspnea. Procedure: AP portable chest Comparison: 03/17/2020 Findings: Bibasilar atelectasis. No focal pneumonia, edema, pleural effusion or pneumothorax. No acut e osseous abnormality. Impression: 1: Bibasilar atelectasis. Reviewed, dictated and finalized at location A. PROJECTOR OPERATOR Impression: 1: Bibasilar atelectasis.
--- NOTE | ~2023-03-30 | CT_ITS ---
EXAMINATION: CT brain wo con DATE: 03/30/2023 21:14 INDICATION: Frequent falls. Patient on blood thinners. TECHNIQUE: Computed tomography (CT) of the head was performed without intravenous contrast. The dose- length product was 756.67 mGy-cm. Automated exposure control and iterative reconstruction technique w ere employed. COMPARISON: None FINDINGS: Generalized atrophy. There are scattered moderate periventricular and subcortical white mat ter changes, most likely related to small vessel ischemic disease (microangiopathy). There is a chron ic left thalamic infarction. There is intracranial atherosclerosis. No acute intracranial hemorrhage, infarction, mass or mass effect. There is mucosal thickening of the left maxillary sinus. Mastoids a re pneumatized. No depressed skull fractures. IMPRESSION: 1. No acute intracranial abnormality. Reviewed, dictated and finalized at location A. DISTRIBUTOR
--- NOTE | 2023-03-30 19:34 | ECG_ITS ---
Measurements Intervals [place] Rate: 64 P: 14 TN: 172 QRS: -11 QRSD: 101 T: 53 QT: 407 QTc: 421 Interpretive Statements SINUS RHYTHM NONSPECIFIC ST ABNORMALITY BORDERLINE ECG NO PREVIOUS ECG AVAILABLE FOR COMPARISON Electronically Signed On 03-31-2023 11:52:06 [employer] POOL SUPERVISOR by Pedro Pablo Logan M.D.
--- NOTE | 2023-03-30 20:32 | ED.GENADULT ---
HPI - General Adult General Chief complaint: Fall Stated complaint: MECHANICAL FALL, INCREASED WEAKNESS Time Seen by Provider: 03/30/23 19:35 History of Present Illness HPI narrative: this is a 68-year-old female who presents to emergency department with chief complaint of frequent falls and generalized weakness. Patient has prior history of hypertension PN DVT a splenectomy the patient today has had issues with unsteady gait for some time was actually seen by her primary care provider in January and started with outpatient physical therapy the patient is on anticoagulant therapy patient reports that she has had frequent falling at home and is currently using a walker and a cane. The patient states that she lives alone but does have home health and does have a caregiver that comes to these week. Related Data Home Medications Medication Instructions Recorded Confirmed apixaban 5 mg tablet (Eliquis) 5 mg PO BID 01/11/21 01/29/23 hydrochlorothiazide 12.5 mg capsule 12.5 mg PO DAILY 01/11/21 01/29/23 Allergies Allergy/AdvReac Type Severity Reaction Status Date / Time prochlorperazine Allergy Unknown Verified 03/30/23 19:34 [facility] Past Medical History Medical History Arthralgia of both hands Benign essential hypertension Cyst of left kidney Diastolic dysfunction Osteoarthritis Osteoporosis Unsteady gait Venous thromboembolism (~02/2020) PE and DVT in February 2020 Vitamin B12 deficiency Vitamin D deficiency Surgical History Surgical History History of splenectomy 1981 - due to splenomegaly History of tonsillectomy Family History Family History Mother Acute myocardial infarction, Onset Age: 63 Father Acute myocardial infarction, Onset Age: 65 Other Family history of throat cancer Social History Social History Smoking status: Never smoker Second hand tobacco smoke exposure: Yes Alcohol intake: current Drinks per week: 5 Substance use: never Substance use type: does not use Lack of Transportation: No Lack of Food: Never True Current Housing: I Have Housing Concerned About Future Housing: No Difficulty Paying Gas/Electric Bills: No Difficulty Paying for Meds: No Currently Unemployed: No Education: Associate Degree Difficulty w/ Childcare or Family Care: No Gender identity (if verbalized by the patient): Female Spiritual care concerns: No Course Vital Signs Vital signs: Vital Signs Temperature 36.7 C 03/30/23 19:27 Pulse Rate 64 03/30/23 19:27 Respiratory Rate 22 H 03/30/23 19:27 Pulse Oximetry 97 03/30/23 19:27 Oxygen Delivery Room Air 03/30/23 19:27 Temperature 36.7 C 03/30/23 19:27 Pulse Rate 64 03/30/23 19:27 Respiratory Rate 22 H 03/30/23 19:27 Pulse Oximetry 97 03/30/23 19:27 Oxygen Delivery Room Air 03/30/23 19:27 Medical Decision Making Vital Signs Vital Signs: Vital Signs Temperature 36.7 C 03/30/23 19:27 Pulse Rate 64 03/30/23 19:27 Respiratory Rate 22 H 03/30/23 19:27 Pulse Oximetry 97 03/30/23 19:27 Oxygen Delivery Room Air 03/30/23 19:27 Temperature 36.7 C 03/30/23 19:27 Pulse Rate 64 03/30/23 19:27 Respiratory Rate 22 H 03/30/23 19:27 Pulse Oximetry 97 03/30/23 19:27 Oxygen Delivery Room Air 03/30/23 19:27 Lab Data 03/30/23 20:39 03/30/23 20:39 Labs: Lab Results 03/30/23 03/30/23 03/30/23 Range/Units 20:38 20:39 20:39 WBC 10.5 H (4.5-10.0) K/mm3 RBC 4.77 (4.2-5.4) M/mm3 Hgb 15.2 H (12.0-15.0) g/dL Hct 45.6 (37.0-47.0) % MCV 95.6 (80-100) fl MCH 31.9 (26-34) pg MCHC 33.3 (32-36) g/dl RDW 15.3 H (11.5-14.5) % Plt Count 316 (150-3
[2023-03-30 20:49] LABS: Basophils Absolute Auto 0.1 K/mm3 (0.0-0.1); Basophils Percent Auto 0.8 % (0.2-1.2); Eosinophils Absolute Auto 0.2 K/mm3 (0-0.3); Eosinophils Percent Auto 1.7 % (0-4.4); Hematocrit 45.6 % (37.0-47.0); Hemoglobin 15.2 g/dL (12.0-15.0); Immature Granulocyte Absolute 0.03 K/mm3 (0.00-0.031); Immature Granulocyte Percent A 0.3 % (0-0.5); Lymphocytes Absolute Auto 3.83 K/mm3 (0.9-3.2); Lymphocytes Percent Auto 36.3 % (18.3-44.2); Mean Corpuscular HGB Conc 33.3 g/dl (32-36); Mean Corpuscular Hemoglobin 31.9 pg (26-34); Mean Corpuscular Volume 95.6 fl (80-100); Mean Platelet Volume 10.6 fl (7.4-10.4); Monocytes Absolute Auto 1.6 K/mm3 (0.1-0.6); Monocytes Percent Auto 15.6 % (2.6-8.5); Neutrophils Absolute Auto 4.8 K/mm3 (1.3-6.7); Neutrophils Percent Auto 45.3 % (45.5-73.1); Platelet Count Result 316 k/mm3 (150-375); Red Blood Count 4.77 M/mm3 (4.2-5.4); Red Cell Distribution Width 15.3 % (11.5-14.5); White Blood Count 10.5 K/mm3 (4.5-10.0)
[2023-03-30 20:52] LABS: Appearance Urine Clear (Clear); Bilirubin Urine Negative (Negative); Blood Urine Negative (Negative); Color Urine Yellow (Yellow); Glucose Urine UA Negative (Negative); Ketones Urine Negative (Negative); Leukocyte Esterase Ur Negative LEU/UL (Negative); Nitrate Urine Negative (Negative); Protein Urine Negative (Negative); Specific Grav Ur 1.005 (1.001-1.035); Urobilinogen Urine 0.2 mg/dL (<2.0); pH Urine 6.5 (5.0-9.0)
[2023-03-30] MEDS: SODIUM CHLORIDE 0.9% IV 1,000 ML 999 ML IV CONT (20:54)
[2023-03-30 20:59] LABS: Add Urine Microscopic? NO
[2023-03-30 21:04] LABS: INR 0.9; Prothrombin Time 12.8 Seconds (11.1-14.7)
[2023-03-30 21:05] LABS: Partial Thromboplastin Time 29.4 SECONDS (22.3-36.8)
[2023-03-30 21:05] LABS: Ethanol 254 mg/dL (<10)
[2023-03-30 21:06] LABS: Alanine Aminotransferase 24 U/L (6-35); Albumin Level 4.7 g/dL (3.5-5.1); Alkaline Phosphatase 61 U/L (38-126); Anion Gap 12 mmol/L (8-16); Aspartate Amino Transferase 39 U/L (14-36); Bilirubin,Total 0.8 mg/dL (0.2-1.3); Blood Urea Nitrogen 21 mg/dL (7-17); Calcium 9.2 mg/dL (8.4-10.2); Carbon Dioxide 30 mmol/L (22-30); Chloride 95 mmol/L (98-107); Estimated CRCL calculation 71 ml/min; Estimated Glomerular Filt Rate > 60; Glucose 92 mg/dL (65-110); Magnesium 2.1 mg/dL (1.6-2.3); Potassium 3.6 mmol/L (3.4-5.0); Sodium 137 mmol/L (137-145)
[2023-03-30 21:08] LABS: Lactic Acid Reflex 1.7 mmol/L (0.7-2.0)
[2023-03-30 21:17] LABS: Troponin I < 0.012 ng/mL (0.000-0.034)
[2023-03-30 21:20] LABS: Procalcitonin 0.1 ng/mL
[2023-03-31 00:02] VITALS: PULSE 63; RESP 20; O2SAT 96
[2023-03-31 00:15] VITALS: PULSE 69; RESP 19; O2SAT 97
[2023-03-31 00:30] VITALS: PULSE 63; RESP 19; O2SAT 96
[2023-03-31 00:45] VITALS: PULSE 62; RESP 18; O2SAT 96
== END 2023-03-31 00:45 | disposition home or self-care (01) ==
PROVIDERS: Emergency Provider Emergency Medicine; PCP Family Medicine
DX: R53.1 Weakness (principal); R29.6 Repeated falls; I10 Essential (primary) hypertension; E53.8 Deficiency of other specified B group vitamins; E55.9 Vitamin D deficiency, unspecified; M81.0 Age-related osteoporosis without current pathological fracture; M19.90 Unspecified osteoarthritis, unspecified site; Z86.718 Personal history of other venous thrombosis and embolism; Z86.711 Personal history of pulmonary embolism; Z90.81 Acquired absence of spleen; Z79.899 Other long term (current) drug therapy; Z79.01 Long term (current) use of anticoagulants; Z77.22 Contact with and (suspected) exposure to environmental tobacco smoke (acute) (chronic); R94.31 Abnormal electrocardiogram [ECG] [EKG]
CPT/HCPCS: 36415; 70450; 71045; 80053; 80307; 81003; 83605; 83735; 84145; 84484; 85025; 85610; 85730; 93005; 96360; 96361; 99284; J7030

== ENCOUNTER 2023-04-23 10:00 | Outpatient (RCR) | payer MEDICARE, SELFPAY ==
--- NOTE | 2023-02-26 11:57 | OPREHPOC ---
Outpatient Therapy Plan of Care This is a Multidisciplinary Plan of Care that may contain components documented by all disciplines (PT, OT, and ST.) PT Problem 1 PT Problem #1 Knowledge Deficit PT Goal 1 Goal Pt to be IND with issued HEP Target Visit 8 PT Problem 2 PT Problem #2 Impaired Gait PT Goal 1 Goal Pt to improve 2 min walk distance from 140ft to 200ft Target Visit 8 PT Goal 2 Goal Pt to ambulate with LE in a neutral position. Target Visit 8 PT Problem 3 PT Problem #3 Impaired Balance PT Goal 1 Goal Pt to improve Tinetti score from 16/28 to 24/28 Target Visit 8 PT Goal 2 Goal Pt to improve TUG time from 26s to 15s with walker Target Visit 8 PT Problem 4 PT Problem #4 Impaired Strength PT Goal 1 Goal Pt to improve her 5xSTS time from 19s to 15s without UE support Target Visit 8 PT Goal 2 Goal Pt to improve global hip strength to 4+/5. Target Visit 8
--- NOTE | 2023-02-26 11:57 | PTOPEVAL1 ---
Assessment and note entered by Katja Correa, PT, DPT Evaluation Information Assessment Status Evaluation Diagnosis unsteadiness on feet, hx of falling (R26.81, Z91. 81) Subjective Information Pt states she would like to get rid of her walker and only use a cane, but she is afraid of falling. Pt has completed multiple months of therapy in the past and states she has not kept up with her exercises. Pt states she fell a few months ago when trying to get out of bed. Pt has help at home that comes 3 hours a day, 2 days a week. Pt states she does an exercise class 1x/month, outside of that she sit on the couch all of her waking hours. Reported Pain Level Pain Score 0: Self Report Assessment PT Clinical Summary Lee Ann presents to therapy today for her initial evaluation with a diagnosis of unsteadiness on her feet and frequent falls. Today she demonstrates decreased functional strength throughout her BLEs as well as decreased functional balance. Her scores on the TUG, Tinetti, and 2min walk test place her at an increased risk for falls. Skilled therapy services are indicated to improve standardized tests score, functional strength and balance, and to minimize fall risk. Plan of Care Interventions Gait Training,Hot Pack/Cold Pack,Manual Therapy, Neuro Re-education,Patient/Caregiver Educati, Therapeutic Activities,Therapeutic Exercise PT Services Indicated Yes Treatment Frequency and 2x/wk for 8 visits Duration These treatments will address the objective and functional deficits as defined above. The patient will be advanced safely and appropriately in order for the patient to progress towards his/her prior level of function. Additional exercises will be introduced and as well as a comprehensive home exercise program upon discharge, if needed, ?to ensure carryover of functional gains achieved in the clinic. This treatment plan has been reviewed and agreement upon by the patient.
--- NOTE | 2023-03-06 09:53 | PCPTNOTE ---
Pt cancelled due to being too dizzy to drive.
--- NOTE | 2023-03-19 10:08 | PCPTNOTE ---
Patient called to cancel due to having to get car fixed.
--- NOTE | 2023-03-20 10:04 | PCPTNOTE ---
Pt cancelled her appt today due to car trouble.
--- NOTE | 2023-03-26 11:07 | PTOPPROG ---
Assessment and note entered by Katja Correa, PT, DPT Evaluation Information Assessment Status Progress Diagnosis unsteadiness on feet, hx of falling (R26.81, Z91. 81) Subjective Information Pt states she is getting around her apartment a little bit better. Pt states she has not been doing her exercises at all since starting therapy. Assessment PT Clinical Summary Lee Ann presents to therapy today for her progress report following 5 visits of skilled therapy to treat her diagnosis of unsteadiness on her feet and frequent falls. Today continues to demonstrate decreased functional strength throughout her BLEs as well as decreased functional balance. Her scores on the TUG, Tinetti, and 2min walk test place her at an increased risk for falls. She made minimal progress towards her therapy d/t cancellations d/t illness. Continuation of skilled therapy services are indicated to improve standardized tests score, functional strength and balance, and to minimize fall risk. Plan of Care Interventions Gait Training,Hot Pack/Cold Pack,Manual Therapy, Neuro Re-education,Patient/Caregiver Educati, Therapeutic Activities,Therapeutic Exercise PT Services Indicated Yes Treatment Frequency and 1x/wk for 4 visits Duration These treatments will address the objective and functional deficits as defined above. The patient will be advanced safely and appropriately in order for the patient to progress towards his/her prior level of function. Additional exercises will be introduced and as well as a comprehensive home exercise program upon discharge, if needed, ?to ensure carryover of functional gains achieved in the clinic. This treatment plan has been reviewed and agreement upon by the patient.
--- NOTE | 2023-04-10 10:49 | PCPTNOTE ---
Patient cancelled todays appoinment secondary to illness.
--- NOTE | 2023-04-23 10:57 | PTOPDC ---
Assessment and note entered by Katja Correa, PT, DPT Evaluation Information Assessment Status Discharge Diagnosis unsteadiness on feet, hx of falling (R26.81, Z91. 81) Subjective Information Pt states she has been working on doing her exercises 3 times a week. She states maybe she has improved a little bit but is not sure. Pt continues to require an aide and a cleaning lady to do most of the housework. Reported Pain Level Pain Score 0: Self Report Assessment PT Clinical Summary Lee Ann presents to therapy today for her progress report following 7 visits of skilled therapy to treat her diagnosis of unsteadiness on her feet and frequent falls. Today continues to demonstrates decreased functional strength throughout her BLEs as well as decreased functional balance. Her scores on the TUG, Tinetti, and 2min walk test have made no progress in the last 2 months, her scores continue to place her at an increased risk for falls. She will be discharged at this time d/t poor therapy progress. Plan of Care PT Services Indicated No
== END 2023-04-23 13:43 | disposition home or self-care (01) ==
LOC: ANHGOSHPT 10:00
PROVIDERS: PCP Family Medicine; Visit Provider Family Medicine
DX: R26.81 Unsteadiness on feet (principal); Z91.81 History of falling
CPT/HCPCS: 97110; 97112; 97161; 97530; 97750

== ENCOUNTER 2023-08-06 10:35 | Outpatient (CLI) | payer MEDICARE, SELFPAY ==
[2023-08-06 20:16] LABS: Alanine Aminotransferase 16 U/L (6-35); Albumin Level 4.6 g/dL (3.5-5.1); Alkaline Phosphatase 49 U/L (38-126); Anion Gap 9 mmol/L (4-12); Aspartate Amino Transferase 46 U/L (14-36); Bilirubin,Total 0.7 mg/dL (0.2-1.3); Blood Urea Nitrogen 26 mg/dL (7-17); Calcium 9.8 mg/dL (8.4-10.2); Carbon Dioxide 31 mmol/L (22-30); Chloride 99 mmol/L (98-107); Estimated Glomerular Filt Rate > 60; Glucose 121 mg/dL (65-110); Potassium 4.2 mmol/L (3.4-5.0); Sodium 139 mmol/L (137-145)
== END 2023-08-06 10:36 | disposition home or self-care (01) ==
LOC: ANHGOSHLAB 10:36
PROVIDERS: PCP Family Medicine; Visit Provider Family Medicine
DX: E55.9 Vitamin D deficiency, unspecified (principal); I10 Essential (primary) hypertension
CPT/HCPCS: 36415; 80053; 82306

== ENCOUNTER 2023-09-20 09:43 | Outpatient (CLI) | payer MEDICARE, SELFPAY ==
[2023-09-20 10:04] LABS: Basophils Absolute Auto 0.1 K/mm3 (0.0-0.1); Basophils Percent Auto 0.9 % (0.2-1.2); Eosinophils Absolute Auto 0.2 K/mm3 (0-0.3); Eosinophils Percent Auto 2.1 % (0-4.4); Hematocrit 40.5 % (37.0-47.0); Hemoglobin 13.7 g/dL (12.0-15.0); Immature Granulocyte Absolute 0.02 K/mm3 (0.00-0.031); Immature Granulocyte Percent A 0.2 % (0-0.5); Lymphocytes Absolute Auto 3.21 K/mm3 (0.9-3.2); Mean Corpuscular HGB Conc 33.8 g/dl (32-36); Mean Corpuscular Volume 97.6 fl (80-100); Mean Platelet Volume 10.4 fl (7.4-10.4); Monocytes Absolute Auto 1.2 K/mm3 (0.1-0.6); Monocytes Percent Auto 13.2 % (2.6-8.5); Neutrophils Absolute Auto 4.2 K/mm3 (1.3-6.7); Neutrophils Percent Auto 47.6 % (45.5-73.1); Platelet Count Result 284 k/mm3 (150-375); Red Blood Count 4.15 M/mm3 (4.2-5.4); Red Cell Distribution Width 14.7 % (11.5-14.5); White Blood Count 8.9 K/mm3 (4.5-10.0)
[2023-09-20 11:43] LABS: Anion Gap 5 mmol/L (4-12); Blood Urea Nitrogen 28 mg/dL (7-17); Carbon Dioxide 32 mmol/L (22-30); Chloride 99 mmol/L (98-107); Estimated Glomerular Filt Rate > 60; Glucose 98 mg/dL (65-110); Potassium 4.2 mmol/L (3.4-5.0); Sodium 136 mmol/L (137-145)
[2023-09-20 12:48] LABS: Folic Acid 5.7 ng/mL (2.76->20)
== END 2023-09-20 09:44 | disposition home or self-care (01) ==
LOC: ANHLAB 09:45
PROVIDERS: PCP Family Medicine; Visit Provider Internal Medicine Hematology & Oncology
DX: D64.9 Anemia, unspecified (principal)
CPT/HCPCS: 36415; 80048; 82607; 82746; 85025

== ENCOUNTER 2024-01-31 10:20 | Outpatient (CLI) | payer MEDICARE, SELFPAY ==
[2024-01-31 10:37] LABS: Basophils Absolute Auto 0.1 K/mm3 (0.0-0.1); Basophils Percent Auto 0.6 % (0.2-1.2); Eosinophils Absolute Auto 0.3 K/mm3 (0-0.3); Eosinophils Percent Auto 3.7 % (0-4.4); Hematocrit 41.2 % (37.0-47.0); Hemoglobin 13.9 g/dL (12.0-15.0); Immature Granulocyte Absolute 0.05 K/mm3 (0.00-0.031); Immature Granulocyte Percent A 0.5 % (0-0.5); Lymphocytes Absolute Auto 2.86 K/mm3 (0.9-3.2); Mean Corpuscular HGB Conc 33.7 g/dl (32-36); Mean Corpuscular Hemoglobin 32.2 pg (26-34); Mean Corpuscular Volume 95.4 fl (80-100); Mean Platelet Volume 10.4 fl (7.4-10.4); Monocytes Absolute Auto 1.6 K/mm3 (0.1-0.6); Monocytes Percent Auto 17.2 % (2.6-8.5); Neutrophils Absolute Auto 4.3 K/mm3 (1.3-6.7); Platelet Count Result 305 k/mm3 (150-375); Red Blood Count 4.32 M/mm3 (4.2-5.4); Red Cell Distribution Width 13.7 % (11.5-14.5); White Blood Count 9.2 K/mm3 (4.5-10.0)
[2024-01-31 14:34] LABS: Folic Acid 7.4 ng/mL (2.76->20)
== END 2024-01-31 10:21 | disposition home or self-care (01) ==
LOC: ANHLAB 10:21
PROVIDERS: PCP Family Medicine; Visit Provider Internal Medicine Hematology & Oncology
DX: D64.9 Anemia, unspecified (principal)
CPT/HCPCS: 36415; 82607; 82746; 85025

== ENCOUNTER 2024-08-03 11:18 | Outpatient (CLI) | payer MEDICARE, SELFPAY ==
[2024-08-03 20:08] LABS: Alanine Aminotransferase 12 U/L (6-35); Albumin Level 4.2 g/dL (3.5-5.1); Alkaline Phosphatase 52 U/L (38-126); Anion Gap 5 mmol/L (4-12); Aspartate Amino Transferase 41 U/L (14-36); Bilirubin,Total 0.7 mg/dL (0.2-1.3); Blood Urea Nitrogen 24 mg/dL (7-17); Calcium 8.9 mg/dL (8.4-10.2); Carbon Dioxide 35 mmol/L (22-30); Chloride 97 mmol/L (98-107); Cholesterol 206 mg/dL (0-200); Estimated Glomerular Filt Rate > 60; Glucose 92 mg/dL (65-110); HDL Direct 100 mg/dL; Potassium 4.1 mmol/L (3.4-5.0); Sodium 137 mmol/L (137-145); Triglycerides 60 mg/dL (<150)
[2024-08-03 20:17] LABS: Hemoglobin A1C 4.9 % (<5.7)
[2024-08-03 20:19] LABS: LDL Cholesterol Direct 83 mg/dL
[2024-08-03 23:49] LABS: Vitamin D 25 Hydroxy 39.1 ng/mL
== END 2024-08-03 11:19 | disposition home or self-care (01) ==
PROVIDERS: PCP Family Medicine; Visit Provider Family Medicine
DX: E78.5 Hyperlipidemia, unspecified (principal); E53.8 Deficiency of other specified B group vitamins; I10 Essential (primary) hypertension; R73.9 Hyperglycemia, unspecified; E55.9 Vitamin D deficiency, unspecified
CPT/HCPCS: 36415; 80053; 80061; 82306; 82607; 83036; 84443

== ENCOUNTER 2024-08-21 11:12 | Emergency (ER) | payer MEDICARE, SELFPAY ==
[2024-08-21] VITALS (12 sets, daily range): BP systolic 150–165; BP diastolic 79–105; PULSE 70–86; RESP 15–21; TEMP 36.9; O2SAT 93–100
--- NOTE | ~2024-08-21 | CT_ITS ---
CT head without contrast Indication: Head injury COMPARISON: 03/30/2023 Technique: Serial scans were obtained through the brain without the administration of contrast. Dose reduction technique was used on this scan by utilizing automated exposure control and iterative recon struction technique. The dose-length product (DLP) was 681.00 mGy-cm. Findings: There is acute parenchymal hemorrhage/hematoma in the left frontal lobe measuring 2.7 x 1.5 cm, with several adjacent smaller foci of acute hemorrhage or superiorly (axial images 45, 37). Ther e is also an additional acute parenchymal hemorrhage/hematoma in the posterior right parietal lobe me asuring approximately 2.6 x 2.3 cm, again with a smaller adjacent focal area of acute hemorrhage. No significant mass effect or midline shift. The ventricles and subarachnoid spaces are dilated, consistent with moderate atrophy. Low attenuatio n regions are seen within the periventricular white matter bilaterally, likely representing changes f rom chronic microvascular ischemic disease. The visualized paranasal sinuses and mastoid air cells ar e clear. Impression: Acute parenchymal hemorrhages in the left frontal lobe measuring 2.7 x 1.5 cm, and in the right parie chao lobe posteriorly, measuring 2.6 x 2.3 cm. Distribution suggests coup and contrecoup injuries. The re are smaller focal areas of additional acute hemorrhage in the right frontal and left parietal bernice ons near the dominant hemorrhages noted above. Atrophy and chronic white matter changes, as above. Findings reported to nurse damon Foster at the time of this reading. Reviewed, dictated and finalized at location . Impression: Acute parenchymal hemorrhages in the left frontal lobe measuring 2.7 x 1.5 cm, and in the right parietal lobe posteriorly, measuring 2.6 x 2.3 cm. Distributio n suggests coup and contrecoup injuries. There are smaller focal areas of addit ional acute hemorrhage in the right frontal and left parietal regions near the dominant hemorrhages noted above. Atrophy and chronic white matter changes, as above. Findings reported to nurse damon Foster at the time of this reading.
--- NOTE | ~2024-08-21 | CT_ITS ---
CLINICAL INDICATION: Fall COMPARISON: Reference is made to a CTA of the chest dated 03/17/2020 TECHNIQUE: Multiple contiguous axial images of the chest, abdomen and pelvis were performed without t he administration of intravenous contrast The dose-length product (DLP) was 537.21 mGy-cm. Automated exposure control and iterative reconstruction technique were employed. FINDINGS/OBSERVATIONS: LUNG: Bibasilar atelectasis. Left lingular consolidation. No evidence of contusion, pneumothorax or hemothorax. MEDIASTINUM: Limited evaluation without intravenous contrast. HEART: The heart is enlarged, without pericardial effusion. SOFT TISSUES OF THE CHEST: Unremarkable. Liver: The liver demonstrates homogeneous attenuation and is not enlarged. No perihepatic fluid to suggest acute traumatic injury. Gallbladder and biliary system: The gallbladder is only minimally distended, and otherwise unremarkable. Pancreas: Limited evaluation of the pancreas secondary to the lack of intravenous contrast. No peripancreatic fluid is identified to suggest acute traumatic injury. Spleen: The spleen demonstrates homogeneous attenuation and is not enlarged. No perisplenic fluid is identified to suggest acute traumatic injury. Kidneys: The bilateral kidneys are atrophic, and without hydronephrosis or renal calculi. No perirenal fluid is identified to suggest acute traumatic injury. Adrenal glands: Unremarkable. Gastrointestinal tract: Fecal stasis within the colon. No free fluid within the abdomen or pelvis. Appendix: The air-filled appendix is identified (axial series, images 134 through 144). Vasculature: Densely calcified atherosclerotic disease within the upper abdomen. Lymph nodes: Limited evaluation without intravenous contrast. Pelvic structures: The bladder is decompressed, and otherwise unremarkable. The uterus is atrophic. Body wall and musculoskeletal: Age-appropriate degenerative disease within the lower thoracic or lumbosacral spine. Compression fracture of the vertebral body of T12, without surrounding inflammation or free fluid, li carissa chronic. No acute fracture within the thoracic or lumbar spine. No acute rib fractures. No acute sternal fracture. IMPRESSION: No hollow or solid organ injury is identified to suggest the presence of acute trauma. Likely chronic T12 vertebral body fracture, based on imaging. Clinical correlation for the presence o r absence of point tenderness is recommended. Innumerable nonacute findings, as detailed above. Reviewed, dictated and finalized at location A. IMPRESSION: No hollow or solid organ injury is identified to suggest the presence of acute trauma. Likely chronic T12 vertebral body fracture, based on imaging. Clinical correlat ion for the presence or absence of point tenderness is recommended. Innumerable nonacute findings, as detailed above.
--- NOTE | ~2024-08-21 | CT_ITS ---
CT Facial Bones and Cervical Spine Clinical Indication: Injury Technique: Contiguous axial scans were obtained through the facial bones and cervical spine followed by coronal and sagittal reconstructions. Dose reduction technique was used on this scan by utilizing automated exposure control and iterative reconstruction technique. The dose-length product (DLP) was 254.40 mGy-cm. Findings: CT facial bones: No fractures are identified. The visualized paranasal sinuses are clear. Intraorbita l soft tissues appear normal. There is mild left periorbital soft tissue swelling. CT cervical spine: No fractures or subluxation. Mild facet joint degenerative changes are present, e specially on the right side.. The intervertebral disc spaces are preserved. No prevertebral soft tis trina swelling. Impression: No fracture is seen in the facial bones. No fracture or subluxation of the cervical spine. Mild left periorbital soft tissue swelling. Reviewed, dictated and finalized at [facility]. Impression: No fracture is seen in the facial bones. No fracture or subluxation of the cervical spine. Mild left periorbital soft tissue swelling.
--- NOTE | 2024-08-21 11:22 | ECG_ITS ---
Test Date: 2024-08-21 11:26:47 Measurements Intervals [place] Rate: 82 P: 16 CO: 156 QRS: -20 QRSD: 109 T: 43 QT: 387 QTc: 452 Interpretive Statements SINUS RHYTHM MINIMAL Q WAVES- ANTEROLATERAL LEADS CONSIDER HIGH LATERAL INFARCT, AGE INDETERMINATE BORDERLINE T WAVE ABNORMALITY- INFERIOR LEADS BASELINE ARTIFACT- I, II, III, AVR, AVL, AVF, V1-V6 ABNORMAL ECG No previous ECG available for comparison Electronically Signed On 08-21-2024 12:03:54 CDT by Terrell Kline D.O.
[2024-08-21 11:39] LABS: Basophils Absolute Auto 0.1 K/mm3 (0.0-0.1); Basophils Percent Auto 0.3 % (0.2-1.2); Eosinophils Absolute Auto 0.1 K/mm3 (0-0.3); Eosinophils Percent Auto 0.4 % (0-4.4); Hematocrit 43.5 % (37.0-47.0); Hemoglobin 14.3 g/dL (12.0-15.0); Immature Granulocyte Absolute 0.13 K/mm3 (0.00-0.031); Immature Granulocyte Percent A 0.7 % (0-0.5); Lymphocytes Absolute Auto 1.15 K/mm3 (0.9-3.2); Lymphocytes Percent Auto 6.6 % (18.3-44.2); Mean Corpuscular HGB Conc 32.9 g/dl (32-36); Mean Corpuscular Hemoglobin 31.9 pg (26-34); Mean Corpuscular Volume 97.1 fl (80-100); Mean Platelet Volume 10.6 fl (7.4-10.4); Monocytes Absolute Auto 1.5 K/mm3 (0.1-0.6); Monocytes Percent Auto 8.7 % (2.6-8.5); Neutrophils Absolute Auto 14.5 K/mm3 (1.3-6.7); Neutrophils Percent Auto 83.3 % (45.5-73.1); Platelet Count Result 319 k/mm3 (150-375); Red Blood Count 4.48 M/mm3 (4.2-5.4); Red Cell Distribution Width 14.5 % (11.5-14.5); White Blood Count 17.4 K/mm3 (4.5-10.0)
--- NOTE | 2024-08-21 11:43 | ED.FALL ---
HPI - Fall General Chief Complaint: Fall Stated Complaint: fall Time Seen by Provider: 08/21/24 11:20 History of Present Illness HPI Narrative: 69-year-old female with history of DVT on Eliquis presents to the emergency department for evaluation after having a ground level fall and being found on the floor by home health. Patient is alert and oriented at her baseline. Related Data Home Medications ?Medication ?Instructions ?Recorded ?Confirmed ?Last Taken ?Type apixaban 5 mg tablet (Eliquis) 5 mg PO BID 01/11/21 08/21/24 Unknown History hydrochlorothiazide 12.5 mg capsule 12.5 mg PO DAILY 01/11/21 02/03/24 Unknown History clobetasol 0.05 % topical cream 1 applic topical QHS 08/03/24 Unknown History Allergies Allergy/AdvReac Type Severity Reaction Status Date / Time prochlorperazine Allergy Unknown Verified 08/03/24 10:48 Review of Systems Review of Systems: All systems reviewed & are unremarkable except as noted in HPI and below PMFSH Past Medical History Medical History Diastolic dysfunction Unsteady gait Cyst of left kidney Osteoarthritis Vitamin D deficiency Vitamin B12 deficiency Osteoporosis Venous thromboembolism (~02/2020) PE and DVT in February 2020 Benign essential hypertension Arthralgia of both hands Surgical History Surgical History History of tonsillectomy History of splenectomy 1981 - due to splenomegaly Family History Family History Mother Acute myocardial infarction, Onset Age: 63 Father Acute myocardial infarction, Onset Age: 65 Other Family history of throat cancer Social History Social History Smoking status: Never smoker Second hand tobacco smoke exposure: Yes Alcohol intake: current Drinks per week: 5 Substance use: never Substance use type: does not use Lack of Transportation: No Lack of Food: Never True Current Housing: I Have Housing Concerned About Future Housing: No Difficulty Paying Gas/Electric Bills: No Difficulty Paying for Meds: No Currently Unemployed: No Education: Associate Degree Difficulty w/ Childcare or Family Care: No Gender identity (if verbalized by the patient): Female Spiritual care concerns: No Exam Narrative: APPEARANCE: Left-sided facial contusion HEAD: normocephalic, atraumatic. EYES: PERRLA/EOMI, conjunctivae clear. NOSE: Normal no drainage EARS:TMS clear with good light reflex. THROAT: Pharynx clear, no exudate. NECK: Supple. No adenopathy, no masses. RESPIRATORY: Airway patent, respirations nonlabored. Clear to auscultation bilaterally, no rales, rhonchi, wheezing. CARDIOVASCULAR: Regular rate and rhythm without murmurs rubs or gallops. ABDOMINAL: Soft, nontender, nondistended, normal bowel sounds MUSCULOSKELETAL: Moves all extremities. Strength/ROM intact, No edema, No calf tenderness. NEURO: Alert. Cranial nerves II through XII intact. Good gait. Good coordination SKIN: Warm, dry. Normal Color Course Vital Signs Vital signs: Vital Signs Temperature 98.4 F 08/21/24 11:03 Pulse Rate 80 08/21/24 11:03 Respiratory Rate 16 08/21/24 11:03 Blood Pressure 153/105 H 08/21/24 11:03 Pulse Oximetry 100 08/21/24 11:03 Oxygen Delivery Room Air 08/21/24 11:03 Temperature 98.4 F 08/21/24 11:52 Pulse Rate 70 08/21/24 12:22 Respiratory Rate 16 08/21/24 12:22 Blood Pressure 161/83 H 08/21/24 12:21 Pulse Oximetry 95 08/21/24 12:22 Oxygen Delivery Room Air 08/21/24 11:03 MDM - Fall MDM Narrative Medical decision making narrative: 69-year-old female presenting to the emergency department for evaluation for altered mental status left-sided facial injury after having a ground level fall. Patient is on Eliquis for a DVT. Patient is currently afebrile but does have a leukocytosis of 17.[address] scan was concerning for multiple parenchymal bleeds. This does represent acute contrecoup injury pattern. Patient is a full code. Patient preferred to be transferred to [facility]. Patient does take Eliquis for history of DVT so patient was started on Kcentra prior to transfer. Patient's blood pressure was elevated at 160 5/74 and she was treated with a dose of IV Lopressor. Patient's facial and cervical spine CTs were negative. Discussed the case with Trauma at [facility] patient was accepted for transfer Court. Patient will be flown. Differential Diagnosis Differential diagnosis: Likely other (Subarachnoid hemorrhage, subdural trauma, intraparenchymal bleed. Skull fracture, cervical spine fracture) Lab Data Attestation: I reviewed the patient's lab results. 08/21/24 11:32 08/21/24 11:32 Labs: Lab Results 08/21/24 Range/Units 11:32 WBC 17.4 H (4.5-10.0) K/mm3 RBC 4.48 (4.2-5.4) M/mm3 Hgb 14.3 (12.0-15.0) g/dL Hct 43.5 (37.0-47.0) % MCV 97.1 (80-100) fl MCH 31.9 (26-34) pg MCHC 32.9 (32-36) g/dl RDW 14.5 (11.5-14.5) % Plt Count 319 (150-375) k/mm3 MPV 10.6 H (7.4-10.4) fl Immature Gran % (Auto) 0.7 H (0-0.5) % Neut % (Auto) 83.3 H (45.5-73.1) % Lymph % (Auto) 6.6 L (18.3-44.2) % Fisher % (Auto) 8.7 H (2.6-8.5) % Eos % (Auto) 0.4 (0-4.4) % Baso % (Auto) 0.3 (0.2-1.2) % Lymph # (Auto) 1.15 (0.9-3.2) K/mm3 Fisher # (Auto) 1.5 H (0.1-0.6) K/mm3 Eos # (Auto) 0.1 (0-0.3) K/mm3 Baso # (Auto) 0.1 (0.0-0.1) K/mm3 Abs Immat Gran (auto) 0.13 H (0.00-0.031) K/mm3 Absolute Neuts (auto) 14.5 H (1.3-6.7) K/mm3 Absolute Nucleated RBC 0.000 (0.0-0.012) K/mm3 Nucleated RBC % 0.0 (0.0-0.2) % PT 14.3 (11.1-14.7) Seconds INR 1.1 APTT 26.9 (22.3-36.8) Seconds Sodium 134 L (137-145) mmol/L Potassium 4.0 (3.4-5.0) mmol/L Chloride 95 L (98-107) mmol/L Carbon Dioxide 26 (22-30) mmol/L Anion Gap 13 H (4-12) mmol/L BUN 25 H (7-17) mg/dL Creatinine 0.58 L (0.7-1.0) mg/dL Estim Creat Clear Calc 63 ml/min Estimated GFR > 60 (59 - ) Glucose 117 H (65-110) mg/dL Calcium 9.0 (8.4-10.2) mg/dL Total Bilirubin 0.9 (0.2-1.3) mg/dL AST 33 (14-36) U/L ALT 20 (6-35) U/L Alkaline Phosphatase 51 (38-126) U/L Total Protein 8.0 (6.3-8.2) g/dL Albumin 4.5 (3.5-5.1) g/dL Urine Color Dark yellow (Yellow) Urine Appearance Clear (Clear) Urine pH 5.5 (5.0-9.0) Ur Specific [place] 1.032 (1.001-1.035) Urine Protein 2+ H (Negative) mg/dL Urine Glucose (UA) Trace H (Negative) mg/dL Urine Ketones 2+ H (Negative) mg/dL Ur Blood (Man) Trace (Negative) Urine Nitrate Negative (Negative) Urine Bilirubin 1+ H (Negative) Urine Urobilinogen 1.0 (<2.0) mg/dL Add Ur Microanalysis Reviewed Leukocyte Esterase Rfl Negative (Negative) ANAYELI/UL Urine RBC 6-10 H (0-2) /hpf Urine WBC 0-5 (0-3) /hpf Ur Squamous Epith Cells None seen (Few) /hpf Urine Bacteria None seen /hpf Urine Casts 0-2 Urine Mucus Present /lpf Imaging Data Radiologist's impression: Impressions Head CT 08/21/24 11:40 Impression: Acute parenchymal hemorrhages in the left frontal lobe measuring 2.7 x 1.5 cm, and in the right parietal lobe posteriorly, measuring 2.6 x 2.3 cm. Distribution suggests coup and contrecoup injuries. There are smaller focal areas of additional acute hemorrhage in the right frontal and left parietal regions near the dominant hemorrhages noted above. Atrophy and chronic white matter changes, as above. Findings reported to nurse practitioner Kristin at the time of this reading. Head/Cervical Spine/Facial Bones CT 08/21/24 11:48 Impression: No fracture is seen in the facial bones. No fracture or subluxation of the cervical spine. Mild left periorbital soft tissue swelling. Chest/Abdomen/Pelvis CT 08/21/24 12:00 IMPRESSION: No hollow or solid organ injury is identified to suggest the presence of acute trauma. Likely chronic T12 vertebral body fracture, based on imaging. Clinical correlation for the presence or absence of point tenderness is recommended. Innumerable nonacute findings, as detailed above. Critical Care Time Critical Care Time Critical Care Time: Yes Total Critical Care Time: 35 Discharge Plan Discharge Clinical Impression: Cerebral parenchymal hemorrhage, Contusion of face, Rib pain on left side Patient Disposition: Acute Care Hospital Condition: Critical Patient Language: Ukrainian Prescriptions: No Action Eliquis 5 mg tablet 5 mg PO BID hydrochlorothiazide 12.5 mg capsule 12.5 mg PO DAILY clobetasol 0.05 % cream 1 applic topical QHS cholecalciferol (vitamin D3) 50 mcg (2,000 unit) tablet 50 mcg PO DAILY Qty: 90 3RF Follow-up/Referrals: Kalani Oh MD [Primary Care Provider] -
[2024-08-21 11:49] LABS: Alanine Aminotransferase 20 U/L (6-35); Albumin Level 4.5 g/dL (3.5-5.1); Alkaline Phosphatase 51 U/L (38-126); Anion Gap 13 mmol/L (4-12); Aspartate Amino Transferase 33 U/L (14-36); Bilirubin,Total 0.9 mg/dL (0.2-1.3); Blood Urea Nitrogen 25 mg/dL (7-17); Carbon Dioxide 26 mmol/L (22-30); Chloride 95 mmol/L (98-107); Estimated CRCL calculation 63 ml/min; Estimated Glomerular Filt Rate > 60; Glucose 117 mg/dL (65-110); Sodium 134 mmol/L (137-145)
[2024-08-21 11:50] LABS: INR 1.1; Prothrombin Time 14.3 Seconds (11.1-14.7)
[2024-08-21 11:51] LABS: Partial Thromboplastin Time 26.9 Seconds (22.3-36.8)
--- OUTSIDE RECORDS SUMMARY | 2024-08-21 11:55 | XMS_ITS | Clinical Summary ---
Author Organization [facility] Building [address] Address [address] [place] [address] Care Team Providers Care Real Estate Administrative Assistant Name Role Phone Rocael Oh MD Primary Care Provider Allergies Active Allergy Reactions Criticality Noted Date Comments Prochlorperazine Medications metoprolol tartrate (LOPRESSOR) 25 mg immediate release tablet Take 1 tablet (25 mg total) by mouth daily 0 Active fluticasone propionate (FLONASE) 50 mcg/actuation nasal spray 1 spray daily 2 Active cetirizine (ZyrTEC) 10 mg tablet Take 1 tablet (10 mg total) by mouth daily 2 Active losartan (COZAAR) 25 mg tabletIndication s:Essential hypertension Take 1 tablet (25 mg total) by mouth daily 30 tablet 11 4 Active Additional Information Patient not taking.Reported on 11/04/2023 hydroCHLOROthiaz taylor (MICROZIDE) 12.5 mg capsuleIndicatio ns:Essential hypertension,Chr onic diastolic congestive heart failure (HCC) TAKE 1 CAPSULE BY MOUTH EVERY DAY 90 capsule 2 4 Active Eliquis 5 mg tablet TAKE 1 TABLET BY MOUTH TWICE A DAY 60 tablet 5 5 Active Active Problems Problem Noted Date Diagnosed Date Abnormal echocardiogram 09/18/2021 History of DVT (deep vein thrombosis) 07/01/2020 Hypoxia 02/08/2020 Chronic diastolic congestive heart failure 01/17 Essential hypertension 09/12/2013 Overview (08/04/2016): High blood pressure 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 Overview (08/04/2016): Eye problems Immunizations Immunization Administration Dates Next Due Influenza, Split 01/01/2011 Influenza, Trivalent, IM (MDV) 12/23/2011,2007 Influenza, Trivalent, Recomb inant, Egg Free, Preservative Free, Antibiotic Free, IM (FLUBLOK) 01/17/2015,02/17/2014 Pneumococcal Conjugate PCV 13 01/17/2015 Tdap 10/27/2008 Surgical History Surgery Date Site/Laterality Comments TONSILLECTOMY Tonsillectomy CARPAL TUNNEL RELEASE 1995 Carpal tunnel release SPLENECTOMY 1983 spleenectomy OTHER SURGICAL HISTORY Hysterectomy, Medical History Medical History Date Comments Hypertension Hypertension Hx Other Medical splenectomy Hx Other Medical eyelid surg Family History Medical History Relation Name Comments Coronary artery disease Father Mary nary artery disease; Cause of : Coronary artery disease Hypertension Father Hypertension; Throat cancer Father Cancer, throat ; Coronary artery disease Mother Mary nary artery disease; Other Other Family history of Cancer, throat; Relation Name Status Comments Father (Age 61) Mother Other Social History Tobacco Use Types Packs/Day Years Used Date Smoking Tobacco: Never Smokeless Tobacco: Never Tobacco Cessation:Counseling Given: Not Answered Alcohol Use Standard Drinks/Week Comments Yes 18 (1 standard drink = 0.6 oz pu re alcohol) Comments Unknown Sex and Gender Information Value Date Recorded Sex Assigned at Not on file Legal Sex Female 9:45 AM VP ANCILLARY Gender Identity Not on file Sexual Orientation Not on file Obstetrics History Last Filed Vital Signs Vital Sign Reading Time Taken Comments Blood Pressure 136/70 11/04/2023 9:58 AM CDT Pulse 67 11/04/2023 9:58 AM CDT Temperature 36.2 C (97.1 F) 02/16/2020 10:16 AM CDT Respiratory Rate 12 06/30/2020 8:50 AM VP ANCILLARY Oxygen Saturation 97% 11/04/2023 9:58 AM CDT Inhaled Oxygen Concentration - - Weight 62.1 kg (136 lb 14.4 oz) 11/04/2023 9:58 AM CDT Height 160 cm (5' 3 ) 11/04/2023 9:58 AM CDT Body Mass Index 24.25 11/04/2023 9:58 AM CDT Plan of Treatment Health Maintenance Due Date Last Done Comments Colon Cancer Screening-Colonoscopy 1954 Depression Screening 1954 Fall Risk Assessment 1954 Hepatitis C Screening 1954 Osteoporosis Screening-Bone Density Scan 1954 Hepatitis B Screening 1972 Zoster Vaccine (1 of 2) 2004 Pneumococcal vaccine 65+ (2 of 2 - PPSV23) 03/14/2015 01/17/2015 Breast Cancer Screening-Mammogram 01/18/2016 015, 01/18/2014 DTaP/Tdap/Td Vaccine (2 - Td or Tdap) 10/27/2018 10/27/2008 Well Visit 65+ 2019 Influenza Vaccine (Season Ended) 2024 01/31/2020, 01/17/2015, 02/17/2014, Additional history exists Procedures Procedure Name Priority Date/Time Associated Diagnosis Comments SCREENING MAMMOGRAM Routine 01/17/2015 1 1:02 AM CDT from Last 3 Months or Most Recently Relevant to Health Maintenance Results * Screening Mammogram (01/17/2015 11:02 AM CDT) Anatomical Region Laterality Modality Breast N/A Mammography 01/17/2015 11:0 2 AM CDT Narrative 01/25/2015 4:52 PM CDT Acc#: [id number] [facility] 0034 - Screening Mamm W Sai Bi DATE OF EXAM: Jan 17 2015 11:02AM DIAGNOSIS: HX HEALTH HAZARDS NEC CLINICAL HISTORY: SCREENING RESULT: EXAMINATION: BILATERAL SCREENING DIGITAL MAMMOGRAPHY WITH CAD AND TOMOSYNTHESIS HISTORY: Routine screening. Family history of breast cancer in patient's aunt at unknown age. COMPARISON: None. The patient has signed a consent form to obtain the outside mammographic study. FINDINGS: Craniocaudal and medial lateral oblique views of both breasts were obtained utilizing full field digital mammography. The breasts are heterogeneously dense that could obscure small masses. A mole marker has been placed on lower left breast. No suspicious dominant mass, clustered microcalcification, or architectural distortion is identified. Scattered benign appearing calcifications are seen in both breasts. This examination has been subjected to R2/CAD analysis. IMPRESSION: 1. BIRADS CATEGORY 0, INCOMPLETE. NEED PRIOR MAMMOGRAMS FOR COMPARISON. 2. COMPARISON WITH PRIOR OUTSIDE MAMMOGRAPHIC EXAMINATION IS RECOMMENDED TO DOCUMENT STABILITY OF THE BREAST PARENCHYMA. ATTEMPTS WILL BE MADE TO OBTAIN THE OUTSIDE STUDY. Dr. Bazzi ADDENDUM Comparison is made to 01/18/14 and 02/07/12 screening mammographic examinations performed at [facility]. Right lower outer nodule is questioned in the interval approximately 2.5 cm from the nipple. This is not identified to be present on the previous exams. This may represent summation of breast parenchyma. Left breast parenchymal distribution is stable. IMPRESSION 1. CATEGORY 0, INCOMPLETE. SPOT COMPRESSION OF THE RIGHT LOWER OUTER BREAST RECOMMENDED. ULTRASOUND MAY BE NEEDED. 2. ANNUAL LEFT SCREENING MAMMOGRAPHY RECOMMENDED. TECHNOLOGIST: GABINO NOWAK, TECHNOLOGIST MEDICAL IMAGING SEISMOLOGY TEACHER: LB3 TRANSCRIBE DATE/TIME: Jan 17 2015 5:36P RADIOLOGIST: ELIE DANIEL M.D. READ ON: Jan 25 2015 2:54P ORDERING DR: ANNA NGUYEN M.D. THIS DOCUMENT HAS BEEN ELECTRONICALLY SIGNED BY: ELIE DANIEL M.D. ON: Jan 25 2015 4:52P SEISMOLOGY TEACHER: MENDEL TRANSCRIBE DATE/TIME: Jan 17 2015 5:36P RADIOLOGIST: ELIE DANIEL M.D. READ ON: Jan 25 2015 2:54P ORDERING DR: ANNA NGUYEN M.D. THIS DOCUMENT HAS BEEN ELECTRONICALLY SIGNED BY: ELIE DANIEL M.D. ON: Jan 25 2015 4:52P Attending: ANNA NGUYEN Requesting: ANAN NGUYEN Requesting Attending Attending ID: [id number] Requesting ID: [id number] Report To 1 ID: Report To 1 Name: , Report To 1 FAX: -- Report To 2 ID: Report To 2 Name: , Report To 2 FAX: -- NextGen Order #: Procedure Note Provider, MD Juliette - 08/24/2016 Acc#: [id number] [facility] 0034 - Screening Mamm W Sai Bi DATE OF EXAM: Jan 17 2015 11:02AM DIAGNOSIS: HX HEALTH HAZARDS NEC CLINICAL HISTORY: SCREENING RESULT: EXAMINATION: BILATERAL SCREENING DIGITAL MAMMOGRAPHY WITH CAD AND TOMOSYNTHESIS HISTORY: Routine screening. Family history of breast cancer in patient's aunt at unknown age. COMPARISON: None. The patient has signed a consent form to obtain the outside mammographic study. FINDINGS: Craniocaudal and medial lateral oblique views of both breasts were obtained utilizing full field digital mammography. The breasts are heterogeneously dense that could obscure small masses. A mole marker has been placed on lower left breast. No suspicious dominant mass, clustered microcalcification, or architectural distortion is identified. Scattered benign appearing calcifications are seen in both breasts. This examination has been subjected to R2/CAD analysis. IMPRESSION: 1. BIRADS CATEGORY 0, INCOMPLETE. NEED PRIOR MAMMOGRAMS FOR COMPARISON. 2. COMPARISON WITH PRIOR OUTSIDE MAMMOGRAPHIC EXAMINATION IS RECOMMENDED TO DOCUMENT STABILITY OF THE BREAST PARENCHYMA. ATTEMPTS WILL BE MADE TO OBTAIN THE OUTSIDE STUDY. Dr. Bazzi ADDENDUM Comparison is made to 01/18/14 and 02/07/12 screening mammographic examinations performed at [facility]. Right lower outer nodule is questioned in the interval approximately 2.5 cm from the nipple. This is not identified to be present on the previous exams. This may represent summation of breast parenchyma. Left breast parenchymal distribution is stable. IMPRESSION 1. CATEGORY 0, INCOMPLETE. SPOT COMPRESSION OF THE RIGHT LOWER OUTER BREAST RECOMMENDED. ULTRASOUND MAY BE NEEDED. 2. ANNUAL LEFT SCREENING MAMMOGRAPHY RECOMMENDED. TECHNOLOGIST: GABINO NOWAK, TECHNOLOGIST MEDICAL IMAGING SEISMOLOGY TEACHER: MENDEL TRANSCRIBE DATE/TIME: Jan 17 2015 5:36P RADIOLOGIST: ELIE DANIEL M.D. READ ON: Jan 25 2015 2:54P ORDERING DR: ANNA NGUYEN M.D. THIS DOCUMENT HAS BEEN ELECTRONICALLY SIGNED BY: ELIE DANIEL M.D. ON: Jan 25 2015 4:52P SEISMOLOGY TEACHER: MENDEL TRANSCRIBE DATE/TIME: Jan 17 2015 5:36P RADIOLOGIST: ELIE DANIEL M.D. READ ON: Jan 25 2015 2:54P ORDERING DR: ANNA NGUYEN M.D. THIS DOCUMENT HAS BEEN ELECTRONICALLY SIGNED BY: ELIE DANIEL M.D. ON: Jan 25 2015 4:52P Attending: ANNA NGUYEN Requesting: ANNA NGUYEN Requesting Attending Attending ID: [id number] Requesting ID: [id number] Report To 1 ID: Report To 1 Name: , Report To 1 FAX: -- Report To 2 ID: Report To 2 Name: , Report To 2 FAX: -- NextGen Order #: us Historical Provider MD [facility] MAMMO PROCEDURES Sunitha l Result from Last 3 Months or Most Recently Relevant to Health Maintenance Insurance MEDICARE ADVANTAGE MEDICARE ADVANTAGE Care Teams Real Estate Administrative Assistant Relationship Specialty Start Date End Date Rocael Oh MD PCP - General Family Practice 04/07/20
--- OUTSIDE RECORDS SUMMARY | 2024-08-21 11:55 | XMS_ITS | Referral Summary ---
Author Organization [facility] Medical Office Building [address] Address [address] [place] [address] Care Team Providers Care Christmas Tree Farmer Name Role Phone Rocael hO MD Primary Care Provider Allergies Active Allergy [...] Pneumococcal Conjugate PCV 13 01/17/2015 Tdap 10/27/2008 Social History Tobacco Use Types Packs/Day Years Used Date Smoking Tobacco: Never Smokeless Tobacco: Never Tobacco Cessation:Counseling Given: Not Answered Alcohol Use Standard Drinks/Week Comments Yes 18 (1 standard drink = 0.6 oz pu re alcohol) Comments Unknown Sex and Gender Information Value Date Recorded Sex Assigned at Not on file Legal Sex Female 9:45 AM 3RD MATE Gender Identity Not on file Sexual Orientation Not on file Last Filed Vital Signs Vital Sign Reading Time Taken Comments Blood Pressure 136/70 11/04/2023 9:58 AM CDT Pulse 67 11/04/2023 9:58 AM CDT Temperature 36.2 C (97.1 F) 02/16/2020 10:16 AM CDT Respiratory Rate 12 06/30/2020 8:50 AM 3RD MATE Oxygen Saturation 97% 11/04/2023 9:58 AM CDT Inhaled Oxygen Concentration - - Weight 62.1 kg (136 lb 14.4 oz) 11/04/2023 9:58 AM CDT Height 160 cm (5' 3 ) 11/04/2023 9:58 AM CDT Body Mass Index 24.25 11/04/2023 9:58 AM CDT Plan of Treatment Not on file Procedures Procedure Name Priority Date/Time Associated Diagnosis Comments SCREENING MAMMOGRAM Routine 01/17/2015 1 1:02 AM CDT from Last 3 Months or Most Recently Relevant to Health Maintenance Results * Screening Mammogram (01/17/2015 11:02 AM CDT) Anatomical Region Laterality Modality Breast N/A Mammography 01/17/2015 11:0 2 AM CDT Narrative 01/25/2015 4:52 PM CDT Acc#: [id number] [facility] [id number] - Screening Mamm W Sai Bi [...] and 02/07/12 screening mammographic examinations performed at [facility]. Right lower outer nodule is questioned in [...] RECOMMENDED. TECHNOLOGIST: GABINO NOWAK, TECHNOLOGIST MEDICAL IMAGING ETHNOGRAPHIC MATERIALS CONSERVATOR: MENDEL TRANSCRIBE DATE/TIME: Jan 17 2015 5:36P RADIOLOGIST: ELIE DANIEL M.D. READ ON: Jan 25 2015 2:54P ORDERING DR: ANNA NGUYEN M.D. THIS DOCUMENT HAS BEEN ELECTRONICALLY SIGNED BY: ELIE DANIEL M.D. ON: Jan 25 2015 4:52P ETHNOGRAPHIC MATERIALS CONSERVATOR: MENDEL TRANSCRIBE DATE/TIME: Jan 17 2015 5:36P RADIOLOGIST: ELIE DANIEL M.D. READ ON: Jan 25 2015 2:54P ORDERING DR: ANNA NGUYEN M.D. THIS DOCUMENT HAS BEEN ELECTRONICALLY SIGNED BY: EILE DANIEL M.D. ON: Jan 25 2015 4:52P Attending: ANNA NGUYEN Requesting: ANNA NGUYEN Requesting Attending Attending ID: [id number] Requesting ID: [id number] Report To 1 ID: Report To 1 Name: , Report To 1 FAX: -- Report To 2 ID: Report To 2 Name: , Report To 2 FAX: -- NextGen Order #: Procedure Note Provider, MD Juliette - 08/24/2016 Acc#: [id number] [facility] 0034 - Screening Mamm W Sai Bi [...] and 02/07/12 screening mammographic examinations performed at [facility]. Right lower outer nodule is questioned in [...] RECOMMENDED. TECHNOLOGIST: GABINO NOWAK, TECHNOLOGIST MEDICAL IMAGING ETHNOGRAPHIC MATERIALS CONSERVATOR: MENDEL TRANSCRIBE DATE/TIME: Jan 17 2015 5:36P RADIOLOGIST: ELIE DANIEL M.D. READ ON: Jan 25 2015 2:54P ORDERING DR: ANNA NGUYEN M.D. THIS DOCUMENT HAS BEEN ELECTRONICALLY SIGNED BY: ELIE DANIEL M.D. ON: Jan 25 2015 4:52P ETHNOGRAPHIC MATERIALS CONSERVATOR: MENDEL TRANSCRIBE DATE/TIME: Jan 17 2015 5:36P RADIOLOGIST: ELIE DANIEL M.D. READ ON: Jan 25 2015 2:54P ORDERING DR: ANNA NGUYEN M.D. THIS DOCUMENT HAS BEEN ELECTRONICALLY SIGNED BY: ELIE DANIEL M.D. ON: Jan 25 2015 4:52P Attending: ANNA NGUYEN Requesting: ANNA NGUYEN Requesting Attending Attending ID: [id number] Requesting ID: [id number] Report To 1 ID: Report To 1 Name: , Report To 1 FAX: -- Report To 2 ID: Report To 2 Name: , Report To 2 FAX: -- NextGen Order #: Historical Provider MD [facility] M[facility] PROCEDURES Sunitha l Result from Last 3 Months or Most Recently Relevant to Health Maintenance Insurance [facility] MEDICARE ADVANTAGE [facility] MEDICARE ADVANTAGE Care Teams Christmas Tree Farmer Relationship Specialty Start Date End Date Rocael Oh MD PCP - General Family Practice 04/07/20
--- OUTSIDE RECORDS SUMMARY | 2024-08-21 11:55 | XMS_ITS | Clinical Summary ---
Author Organization [facility] Address [address] [place] [address] Care Team Providers Care Electronic Installer Name Role Phone Rocael Oh MD Primary Care Provider Allergies Active Allergy Reactions Criticality Noted Date Comments Prochlorperazine Delirium 05/03/2020 Medications hydroCHLOROthiaz taylor (MICROZIDE) 12.5 mg capsule Take 12.5 mg by mouth. 01/18/2020 Active cetirizine (ZyrTEC) 10 mg tablet Take 10 mg by mouth daily. 09/06/2021 Active Eliquis 5 mg tablet Take 5 mg by mouth 2 times daily. Active CHOLECALCIFEROL, VITAMIN D3, ORAL Take by mouth. 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 Family History Medical History Relation Name Comments Heart Disease Father Throat Cancer Father Heart Attack Mother Heart Disease Mother Relation Name Status Comments Father Mother Social History Tobacco Use Types Packs/Day Years Used Date Smoking Tobacco: Never Smokeless Tobacco: Never Tobacco Cessation:Counseling Given: Not Answered Alcohol Use Standard Drinks/Week Comments Yes 0 (1 standard drink = 0.6 oz pur e alcohol) once a day Comments No Sex and Gender Information Value Date Recorded Sex Assigned at Not on file Legal Sex Female 10:12 PM CDT Gender Identity Not on file Sexual Orientation Not on file Last Filed Vital Signs Vital Sign Reading Time Taken Comments Blood Pressure 137/78 02/07/2024 11:05 AM CDT Pulse 70 02/07/2024 11:01 AM CDT Temperature 36.7 C (98 F) 02/07/2024 11:01 AM CDT Respiratory Rate 16 02/07/2024 11:01 AM CDT Oxygen Saturation 96% 02/07/2024 11:01 AM CDT Inhaled Oxygen Concentration - - Weight 59.4 kg (131 lb) 02/07/2024 11:01 AM CDT Height 160 cm (5' 3 ) 10/19/2021 11:17 AM CDT Body Mass Index 23.21 10/19/2021 11:17 AM CDT Plan of Treatment Upcoming Encounters Date Type Department Care Team (Late st Contact Info) Description 11/02/2024 1:00 PM CDT Office Visit [facility] Oncology and Hematology [facility] [address] [facility] [address] [place] [address] Juan Davidson MD [address] [place] [address] Health Maintenance Due Date Last Done Comments COLORECTAL SCREENING 1999 Colorectal Cancer Screening 1999 FIT-DNA Q 3 years 1999 FIT/FOBT Q 1 year 1999 Flex Sig/CT Colonography Q 5 years 1999 ZOSTER VACCINE (1 of 2) 2004 PNEUMOCOCCAL VACCINE 50+ YEA RS (2 of 2 - PPSV23) 03/14/2015 01/17/2015 BREAST CANCER SCREENING 02/12/2016 02/12/20 15, 01/17/2015, 01/18/2014 DTAP/TDAP/TD VACCINES (2 - T d or Tdap) 10/27/2018 10/27/2008 OSTEOPOROSIS SCREENING 2019 INFLUENZA VACCINE (#1) 2023 5, 02/17/2014, 12/23/2011, Additional history exists Medicare Ad[place]age ([place]) Preventative Visit/Annual Wellness Visit 04/29/2024 RSV VACCINE (60+ or ) (1 - 1-dose 75+ series) [address] [facility] [id number] Care Teams Electronic Installer Relationship Specialty Start Date End Date Rocael Oh MD [address] [place] [address] PCP - General Family Practice 04/08/20
[2024-08-21] MEDS: METOPROLOL TARTRATE INJ 5 MG/5 ML VIAL IV PUSH (11:56)
[2024-08-21] MEDS: HUMAN PROTHROMBIN COMPLEX(PCC) 2,000 UNITS in PREMIXIV 0 ML 443 UNITS IV CONT (12:05)
[2024-08-21 12:20] LABS: Add Urine Microscopic? YES; Appearance Urine Clear (Clear); Bacteria Urine None Seen /hpf; Bilirubin Urine 1+ (Negative); Blood Urine Trace (Negative); Color Urine Dark Yellow (Yellow); Glucose Urine UA Trace mg/dL (Negative); Ketones Urine 2+ mg/dL (Negative); Leukocyte Esterase Ur Negative LEU/UL (Negative); Mucus Urine Present /lpf; Need Manual Microscopic Reviewed; Nitrate Urine Negative (Negative); Non Pathogenic Casts 0-2; Protein Urine 2+ mg/dL (Negative); Specific Grav Ur 1.032 (1.001-1.035); Squamous Epithelial Cell Urine None Seen /hpf (Few); WBC Urine 0-5 /hpf (0-3); pH Urine 5.5 (5.0-9.0)
== END 2024-08-21 12:38 | disposition short-term general hospital (02) ==
PROVIDERS: Emergency Provider Emergency Medicine; PCP Family Medicine
DX: I61.9 Nontraumatic intracerebral hemorrhage, unspecified (principal); S00.83XA Contusion of other part of head, initial encounter; R07.81 Pleurodynia; W18.30XA Fall on same level, unspecified, initial encounter; Z86.718 Personal history of other venous thrombosis and embolism; Z79.01 Long term (current) use of anticoagulants; E55.9 Vitamin D deficiency, unspecified; E53.8 Deficiency of other specified B group vitamins; M81.0 Age-related osteoporosis without current pathological fracture; I10 Essential (primary) hypertension
CPT/HCPCS: 36415; 70450; 70486; 71250; 72125; 74176; 80053; 81001; 85025; 85610; 85730; 93005; 96374; 99285; J7168